=== PATIENT | female | born 1940 | race Caucasian/White ===

== ENCOUNTER → 2016-08-11 | Outpatient (CLI) | payer BC | END | disposition home or self-care (01) | LOC: C.PAPS 12:02 | PROVIDERS: ATTEND Obstetrics & Gynecology | DX: N81.11 Cystocele, midline (principal); Z01.419 Encounter for gynecological examination (general) (routine) without abnormal findings ==

== ENCOUNTER → 2016-09-23 | Outpatient (CLI) | payer BC ==
[~2016-09-23] MED LIST: ASCO500T3 PO; ASPEC81 PO; CALC-20 PO; CHOL1000 PO; FURO-85 PO; GLUCTAB7 PO; LSN25 PO; MULT-1092 PO; OMEG10007 PO; PHYT100T PO; SPR25 PO; TPRSR25 PO
--- NOTE | 2016-09-24 12:47 | MAMMOGRAPHY REPORT ---
BILATERAL DIGITAL SCREENING MAMMOGRAM WITH CAD: 09/23/2016 CLINICAL HISTORY: Routine screening. Patient has no complaints. TECHNIQUE: Bilateral CC and MLO views were obtained. Current study was also evaluated with a Comput er Aided Detection (CAD) system. COMPARISON: Comparison is made to exams dated: 09/21/2015 mammogram, 08/23/2013 mammogram, 08/25/2014 m ammogram, 08/17/2012 mammogram, 02/24/2012 mammogram, and 08/15/2011 mammogram - [facility]. BREAST COMPOSITION: The tissue of both breasts is almost entirely fatty. FINDINGS: There are minimal vascular calcifications in the breasts. No suspicious mass, architectur al distortion or cluster of microcalcifications is seen. IMPRESSION: ACR BI-RADS CATEGORY 1: NEGATIVE There is no mammographic evidence of malignancy. A 1 year screening mammogram is recommended. The p atient will receive written notification of the results. Approximately 10% of breast cancers are not detected with mammography. A negative mammographic repor t should not delay biopsy if a clinically suggestive mass is present. Faviola Denton M.D. ay/:09/23/2016 16:27:04 Nurse Practitioner Manager: Shaista JOAQUIN(Larissa)(M), [facility] letter sent: Normal 1/2 BI-RADS Code: ACR BI-RADS Category 1: Negative
== END | disposition home or self-care (01) ==
LOC: C.MAMM 10:29
PROVIDERS: ATTEND Obstetrics & Gynecology
DX: Z12.31 Encounter for screening mammogram for malignant neoplasm of breast (principal)

== ENCOUNTER → 2016-12-11 | Outpatient (CLI) | payer BC | END | disposition home or self-care (01) | LOC: C.LAB 18:18 | PROVIDERS: ATTEND Nurse Practitioner Family | DX: R39.9 Unspecified symptoms and signs involving the genitourinary system (principal); N39.0 Urinary tract infection, site not specified ==

== ENCOUNTER → 2016-12-26 | Outpatient (CLI) | payer BC ==
[2016-12-26 14:47] LABS: HEMATOCRIT 41.3 % (37-47); MEAN CORPUSCULAR HEMOGLOBIN 30.2 pg (25-34); MEAN CORPUSCULAR HGB CONC 32.4 g/dl (32-36); MEAN PLATELET VOLUME 10.8 fL (7.4-10.4); PLATELET COUNT 236 K/uL (130-400); RED BLOOD COUNT 4.44 M/uL (4.2-5.4); WHITE BLOOD COUNT 7.09 K/uL (4.8-10.8)
[2016-12-26 15:16] LABS: ALT/SGPT 27 U/L (12-78); BLOOD UREA NITROGEN 17 mg/dl (7-18); BUN/CREATININE RATIO 17.8 (10-20); CALCIUM 9.1 mg/dl (8.5-10.1); CARBON DIOXIDE 29 mmol/L (21-32); CHLORIDE 108 mmol/L (98-107); CHOLESTEROL 160 mg/dl (0-200); CREATININE 0.95 mg/dl (0.60-1.20); GLUCOSE 83 mg/dl (70-99); POTASSIUM 4.1 mmol/L (3.5-5.1); SODIUM 141 mmol/L (136-145); TRIGLYCERIDES 86 mg/dl (0-150); VERY LOW DENSITY LIPOPROT CALC 17 mg/dl
[2016-12-26 15:18] LABS: ALB/GLOB RATIO 1.1 (0.9-2); ALKALINE PHOSPHATASE 83 U/L (45-117); AST/SGOT 28 U/L (15-37); CHOLESTEROL/HDL RATIO 2.7; HDL CHOLESTEROL 60 mg/dl; LDL CHOLESTEROL CALCULATED 83 mg/dl
== END | disposition home or self-care (01) ==
LOC: C.CPL 13:55
PROVIDERS: ATTEND Internal Medicine Cardiovascular Disease
DX: I49.3 Ventricular premature depolarization (principal); E78.5 Hyperlipidemia, unspecified

== ENCOUNTER → 2017-03-10 | Outpatient (CLI) | payer BC | END | disposition home or self-care (01) | LOC: C.MAMM 09:57 | PROVIDERS: ATTEND Family Medicine | DX: M85.88 Other specified disorders of bone density and structure, other site (principal); M85.852 Other specified disorders of bone density and structure, left thigh; M85.851 Other specified disorders of bone density and structure, right thigh; Z78.0 Asymptomatic menopausal state ==

== ENCOUNTER → 2017-05-04 | Outpatient (CLI) | payer BC ==
[~2017-05-04] MED LIST changes: -PHYT100T PO
[2017-05-04 13:23] LABS: URINE APPEARANCE CLOUDY (CLEAR); URINE BILIRUBIN NEG (NEG); URINE COLOR YELLOW; URINE EPITHELIAL CELL AUTO 0-5 /lpf (0-5); URINE NITRITE NEG (NEG); URINE SPECIFIC GRAVITY 1.014 (1.000-1.030); UROBILINOGEN NEG (NEG)
[2017-05-04 13:25] LABS: MANUAL MICROSCOPIC REQUIRED? NO; REVIEW REQ? YES
[2017-05-04 14:07] LABS: BLOOD UREA NITROGEN 18 mg/dl (7-18); BUN/CREATININE RATIO 18.8 (10-20); CALCIUM 9.4 mg/dl (8.5-10.1); CARBON DIOXIDE 28 mmol/L (21-32); CHLORIDE 103 mmol/L (98-107); CREATININE 0.98 mg/dl (0.60-1.20); GLUCOSE 85 mg/dl (70-99); POTASSIUM 4.3 mmol/L (3.5-5.1); SODIUM 140 mmol/L (136-145)
== END | disposition home or self-care (01) ==
LOC: C.LAB 11:46
PROVIDERS: ATTEND Nurse Practitioner Adult Health
DX: I50.9 Heart failure, unspecified (principal)

== ENCOUNTER → 2017-09-07 | Outpatient (CLI) | payer BC ==
[~2017-09-07] MED LIST changes: -FURO-85 PO
--- NOTE | 2017-09-09 17:35 | POLYSOMNOGRAPH REPORT ---
CLINICAL DATA: A 77-year-old female with a BMI of [address] Lee. She is sent for a CPAP titration study. She feels like she is getting too much air. She does have a history of CHF. SLEEP ARCHITECTURE: Total sleep period was 469 minutes. Total sleep time was 325 minutes divided between 291 minutes of non REM and 10 minutes of REM. REM latency was 68.5 minutes. Sleep efficiency was 67%. Sleep consisted of stage N1 12%, N2 63% N3 14%, and REM 10%. AROUSAL DATA: 122 arousals were noted. 40 were due to respiratory events. 26 were due to snoring. PERIODIC LIMB MOVEMENT DATA: 101 limb movements during sleep were noted for an index of 18.6 per hour with arousal index of 5.9 per hour. RESPIRATORY DATA: The AHI was 17.4. The RDI was 19.4. There were 3 central and 17 obstructive apneic episodes. The longest apneic episode was 39.7 seconds. There were 74 hypopneic episodes with a mean duration of 27.9 seconds. There were 11 RERAs. The longest RERA was 86 seconds. OXIMETRY DATA: Transient nocturnal hypoxemia was seen. Oxygen ashwin was 85% during REM. Mean saturation was 93%. Time below 88% was 3 minutes. EKG: PVC's were seen. Heart rates ranged from 47-93 bpm. BREAST WORKER'S COMMENTS AND TREATMENT SUMMARY: The patient slept in the right and supine position. CPAP 5 cm, C-Flex setting 1 was begun. The patient began having some central apneic episodes and 2 short episodes of Che[place] Enrique breathing. She was then switched over to BIPAP 12/8 and was eventually titrated up to BIPAP 15/10 with Bi-Flex setting 2. She started using a nasal mask but would open her mouth, so she was switched to a full facemask. She had difficulty finding a mask which felt comfortable on her face. She tried a Quattro Air full facemask, a small [employer] Simplus, and a Simplus Celia View. She did not like any of the full face masks and returned to nasal pillows for Respironics. However, her mouth would open when nasal pillows were used and awaken her frequently. At her final pressure setting of BiPAP 15/10, Bi-Flex setting 2 , the patient slept for 74.8 minutes with an AHI of 0. IMPRESSION: Obstructive sleep apnea/hypopnea with a very difficult titration study. The patient did have some evidence of central apnea and transient Beni-Enrique respirations. She was switched from CPAP to BIPAP and was titrated up to a final pressure setting of 15/10. At that setting, she had an apnea/hypopnea index of 0. However, she was having a difficult time with her interface and preferred nasal pillows even though her mouth opened when she was using nasal pillows. RECOMMENDATIONS: The patient should be seen back in followup to discuss changes in her PAP therapy. If she is insisting on using a nasal mask, then a chin strap may be needed. If she continues to have difficulty, a referral for ASV titration may be of benefit. Clinical correlation is needed. FEDE
== END | disposition home or self-care (01) ==
LOC: C.NEUR 21:00
PROVIDERS: ATTEND Internal Medicine
DX: G47.33 Obstructive sleep apnea (adult) (pediatric) (principal)

== ENCOUNTER → 2017-10-29 | Outpatient (CLI) | payer BC ==
[~2017-10-29] MED LIST changes: -ASPEC81 PO; +ASPI-320 PO
--- NOTE | 2017-10-29 15:32 | MAMMOGRAPHY REPORT ---
BILATERAL DIGITAL SCREENING MAMMOGRAM TOMOSYNTHESIS WITH CAD: 10/29/2017 CLINICAL HISTORY: Routine screening. Patient has no complaints. TECHNIQUE: Breast tomosynthesis in addition to standard 2D mammography was performed. Current study was also evaluated with a Computer Aided Detection (CAD) system. COMPARISON: Comparison is made to exams dated: 09/23/2016 mammogram, 09/21/2015 mammogram, 08/25/2014 ma mmogram, 08/23/2013 mammogram, 08/17/2012 mammogram, and 02/24/2012 mammogram - [facility]. BREAST COMPOSITION: The tissue of both breasts is almost entirely fatty. FINDINGS: No suspicious masses, calcifications, or areas of architectural distortion are noted in ei ther breast. There has been no significant interval change compared to prior exams. IMPRESSION: ACR BI-RADS CATEGORY 1: NEGATIVE There is no mammographic evidence of malignancy. A 1 year screening mammogram is recommended. The pa tient will receive written notification of the results. Approximately 10% of breast cancers are not detected with mammography. A negative mammographic report should not delay biopsy if a clinically suggestive mass is present. Sarita Alegre M.D. ah/:10/29/2017 12:19:19 Training Facilitator: Amelia JOAQUIN(Larissa)(John), [facility] letter sent: Normal 1/2 BI-RADS Code: ACR BI-RADS Category 1: Negative
== END | disposition home or self-care (01) ==
LOC: C.MAMM 10:51
PROVIDERS: ATTEND Obstetrics & Gynecology
DX: Z12.31 Encounter for screening mammogram for malignant neoplasm of breast (principal)

== ENCOUNTER → 2018-01-21 | Outpatient (CLI) | payer BC ==
[~2018-01-21] MED LIST changes: +SPIR25TA6 PO; -SPR25 PO
--- NOTE | 2018-01-21 17:10 | DIAGNOSTIC IMAGING REPORT ---
CHEST 2 VIEWS ROUTINE CLINICAL HISTORY: COUGH COMPARISON STUDY: 04/14/2017 FINDINGS: The bones soft tissues and hemidiaphragms are normal. The cardiomediastinal silhouette is normal. The lungs are clear. The pulmonary vasculature is normal. IMPRESSION: Negative chest. The above report was generated using voice recognition software. It may contain grammatical, syntax or spelling errors. Electronically signed by: Khurram Broussard M.D. 01/21/2018 5:09 PM Dictated Date/Time: 01/21/2018 5:04 PM
== END | disposition home or self-care (01) ==
LOC: C.LAB 16:43
PROVIDERS: ATTEND Family Medicine
DX: R05 Cough (principal)

== ENCOUNTER → 2018-01-22 | Outpatient (CLI) | payer BC ==
[2018-01-22 09:41] LABS: BASO % 0.7 %; BASO ABS # 0.04 K/uL (0-0.2); EOS % 4.1 %; EOS ABS # 0.23 K/uL (0-0.5); HEMATOCRIT 42.6 % (37-47); HEMOGLOBIN 14.1 g/dL (12.0-16.0); IG# 0.01 K/uL (0.00-0.02); LYMPH % 29.2 %; LYMPH ABS # 1.64 K/uL (1.2-3.4); MEAN CELL VOLUME 92.8 fL (80-100); MEAN CORPUSCULAR HEMOGLOBIN 30.7 pg (25-34); MEAN CORPUSCULAR HGB CONC 33.1 g/dl (32-36); MEAN PLATELET VOLUME 11.3 fL (7.4-10.4); MONO % 10.7 %; NEUT % 55.1 %; PLATELET COUNT 251 K/uL (130-400); RED CELL DISTRIBUTION WIDTH CV 13.5 % (11.5-14.5); RED CELL DISTRIBUTION WIDTH SD 45.8 fL (36.4-46.3); WHITE BLOOD COUNT 5.62 K/uL (4.8-10.8)
[2018-01-22 10:16] LABS: ALBUMIN 3.6 gm/dl (3.4-5.0); ALKALINE PHOSPHATASE 77 U/L (45-117); ALT/SGPT 27 U/L (12-78); AST/SGOT 26 U/L (15-37); BLOOD UREA NITROGEN 17 mg/dl (7-18); CALCIUM 9.4 mg/dl (8.5-10.1); CARBON DIOXIDE 29 mmol/L (21-32); CHOLESTEROL 161 mg/dl (0-200); CREATININE 0.86 mg/dl (0.60-1.20); GLUCOSE 94 mg/dl (70-99); LDL CHOLESTEROL CALCULATED 93 mg/dl; POTASSIUM 4.4 mmol/L (3.5-5.1); SODIUM 137 mmol/L (136-145); TOTAL PROTEIN 7.5 gm/dl (6.4-8.2); TRANSFERRIN 309 mg/dl (200-360)
[2018-01-22 10:29] LABS: HEMOGLOBIN A1C 6.1 % (4.5-5.6)
== END | disposition home or self-care (01) ==
LOC: C.LAB 08:28
PROVIDERS: ATTEND Family Medicine
DX: R73.09 Other abnormal glucose (principal); E55.9 Vitamin D deficiency, unspecified; D51.9 Vitamin B12 deficiency anemia, unspecified; E78.9 Disorder of lipoprotein metabolism, unspecified; R53.83 Other fatigue

== ENCOUNTER 2024-06-20 14:44 | Inpatient (IN) ==
--- NOTE | 2024-06-20 15:45 | XRay Report ---
XR forearm LT 2V CLINICAL HISTORY: Forearm trauma TECHNIQUE: 2 views of the left forearm were obtained. Comparison: None available at the time of this dictation. FINDINGS: There is no evidence of acute fracture or dislocation. Joint spaces are well-preserved. No soft tissu e abnormality is seen. IMPRESSION: No evidence of acute osseous injury. ACT 112: Negative or not required by law. Electronically signed by: Paulo Ibrahim M.D. 06/20/2024 3:44 PM
[2024-06-20 15:52] LABS: Hematocrit (blood only) 36.2 % (37.0-47.0); Hemoglobin 12.4 g/dl (12.0-16.0); Mean Corpuscular Hemoglobin 30.4 pg (25.0-34.0); Mean Corpuscular Hgb Conc 34.3 g/dL (32.0-36.0); Mean Corpuscular Volume 88.7 fL (80.0-100.0); Mean Platelet Volume 10.5 fL (9.4-12.4); Platelet Count 136 K/uL (130-400); RDW Coefficient of Variation 14.2 % (11.5-14.5); Red Blood Count 4.08 M/uL (4.20-5.40); White Blood Count 13.41 K/ul (4.8-10.8)
--- NOTE | 2024-06-20 15:57 | Emergency Department Note ---
Impression & Plan Urinary tract infection, Fall, SHELBY (acute kidney injury) ED Provider Note NAME: WILY ADHIKARI AGE: 83 SEX: F : 1940 ARRIVES VIA: Walk-In INFORMANT: Patient, the patient's daughter ED PROVIDER(S): Pan Ross DO CHIEF COMPLAINT: Fall HPI: The patient is an 83-year-old female who presented to the emergency department for an evaluation after a fall. The patient fell last evening onto her left side. She thinks she may have struck the left side of her head. There was no reported loss of consciousness but the patient's daughter was concerned because she seemed to be confused and slow this morning. She thinks her symptoms have improved. She also has complained of a sore throat as well as swelling under the left side of her neck. She denies having any fever. She denies having any vomiting or abdominal pain. She denies having any back pain. She does complain of some right hip pain but she has been able to ambulate. Her daughter did call her primary care physician and they were referred to the emergency department. ROS: See above HPI for pertinent positives & negatives. A total of 10 systems reviewed and were otherwise negative. PAST MEDICAL HISTORY: See Below PAST SURGICAL HISTORY: See Below FAMILY HISTORY: See Below SOCIAL HISTORY: See Below HOME MEDICATIONS: See Below ALLERGIES: See Below VITALS: See Below PHYSICAL EXAMINATION: GENERAL: Patient is awake alert in no acute distress patient is resting comfortably and showing no signs of anxiety EYES: The conjunctivae are clear. The pupils are round and reactive. EARS, NOSE, MOUTH AND THROAT: The nose is without any evidence of any deformity. Mucous membranes are moist. There is no significant erythema. There is no swelling in the oropharynx. NECK: The neck is nontender and supple. RESPIRATORY: Normal respiratory effort is noted there is no evidence of wheezing rhonchi or rales CARDIOVASCULAR: Regular rate and rhythm noted there no murmurs rubs or gallops normal S1 normal S2. GASTROINTESTINAL: The abdomen is soft. Abdomen is nontender. BACK: No midline tenderness or or step-off noted range of motion in flexion extension as well as rotation no signs of muscle spasm noted MUSCULOSKELETAL/EXTREMITIES: There is no evidence of gross deformity full range of motion is noted in the hips and shoulders. SKIN: There is no obvious evidence of any rash. There are no petechiae, pallor or cyanosis noted. NEUROLOGIC: Patient is awake alert and oriented x3. Strength was symmetric. MEDICAL DECISION MAKING: The patient is an 83-year-old female who presented to the emergency department for an evaluation after a fall. The patient did have a fall yesterday which seemed to be a minor fall but she seemed to be weak and a little bit off according to her daughter. The patient was awake and alert for my exam. She had no obvious signs of trauma. I discussed the patient's laboratory and radiographic studies with the patient's daughter as well as the patient. She was treated with IV fluids because her creatinine was slightly elevated and she had episodes of hypotension. She also was treated with an IV antibiotic. On reevaluation she started having rigors. Initially I thought the patient might be a good candidate for outpatient management but after reevaluation of the concern that she may be developing more of a pyelonephritis or systemic infection. For this reason I discussed her condition with the on-call [facility] hospitalist. Triage Nursing notes reviewed. Prior medical records reviewed Vital Signs: reviewed and remarkable for hypotension. Differential diagnosis: Fracture, dislocation, contusion, intra-abdominal, pneumothorax, intrathoracic, intracranial, neurologic, compartment syndrome, rhabdomyolysis, as well as other pathologies. ER treatment provided: See below Diagnostics interpreted by me: ECG: none Cardiac Monitoring: An order was placed for continuous cardiac monitoring. The monitor shows a rate of 77 bpm with sinus rhythm. Laboratory studies: As stated above and show below. Imaging studies: See below. Radiographic imaging was reviewed by myself Consultation(s): I discussed this case with Dr. Restrepo who is on-call for the [facility]ist group. Past Med/Surg History Problem List (Updated 06/20/24 @ 19:23 by Pan Ross DO) SHELBY (acute kidney injury) (Acute) Fall (Acute) Urinary tract infection (Acute) Right hip pain Incomplete bladder emptying Scoliosis of lumbar region due to degenerative disease of spine in adult Microscopic hematuria Low back pain Disc degeneration, lumbar Urinary urgency Urinary frequency UTI (urinary tract infection) Near syncope Chronic UTI Calcification of both carotid arteries Dysphagia CHF (congestive heart failure) Alveolar emphysema of lung Diarrhea Ventricular tachycardia, non-sustained Postmenopausal atrophic vaginitis Rosacea Psoriasis Postmenopausal hormone replacement therapy Osteopenia Chronic interstitial cystitis Cystocele Exertional shortness of breath Ex-smoker MARIAMA (obstructive sleep apnea) Knee pain Recurrent UTI Urinary incontinence Ventricular ectopy (Chronic) Medical History Acute UTI Seborrheic keratosis Rectocele Menopausal symptoms COPD with emphysema Abnormal chest CT Neurofibroma Migraine Surgical History S/P tonsillectomy and adenoidectomy S/P foot surgery S/P appendectomy History of dilation and curettage H/O sinus surgery History of cataract surgery Family History Grandmother (Maternal) Colorectal cancer Family/Other Ovarian cancer first cousin Aunt Myocardial infarction Uncle Stroke Other Breast cancer Denies family history of Prostate cancer Lung cancer Social History Smoking Status: Never smoker Tobacco Type: Cigarettes Age Started Using Tobacco: 16; Age Quit Using Tobacco: 45; packs per day: 2; Second Hand Exposure: No; Do You Dip or Chew Tobacco: No; Hx Alcohol Use: No Hx Substance Use: No Preferred Language: Icelandic Communication Ability: Effective Visual Impairment: Limited Hearing Ability: Normal marital status: Current Living Situation: Spouse current occupational status: employed 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 How many Children do You have: 3 Feels Safe at Home: Yes Childhood Exposure to Second-Hand Smoke: Yes Diet: regular caffeine: No during the past year weight has: remained stable Dental Care, Regularly: Yes Physical Activity Frequency: 3-4 Times per Week Seatbelt Use: always Sunscreen Use: Yes Assistive Devices: None Allergies Allergies Allergy/AdvReac Type Severity Reaction Status Date / Time prednisone Allergy Intermediate Joint pain Verified 05/09/24 13:22 Sulfa (Sulfonamide Allergy Intermediate Nausea Verified 05/09/24 13:22 Antibiotics) codeine Allergy Mild Itchy, red Verified 05/09/24 13:22 skin latex Allergy Mild Itchy, red Verified 05/09/24 13:22 skin Home Meds Home Medications Medication Instructions Recorded Confirmed digestive enzymes 1 tab PO DAILY 01/27/19 06/20/24 multivitamin-ferrous 1 tab PO DAILY 01/27/19 06/20/24 fumarate-folic acid 18 mg-400 mcg tablet (Centrum Complete) spironolactone 25 mg tablet 12.5 mg PO DAILY 01/22/21 06/20/24 telmisartan 20 mg tablet 20 mg PO DAILY 01/22/21 06/20/24 glucosamine sulfate 500 mg tablet 500 mg PO DAILY 11/26/21 06/20/24 (Glucosamine) ascorbic acid (vitamin C) 500 mg 500 mg PO DAILY 10/02/22 06/20/24 tablet fluticasone propionate 50 2 spray intranasal DAILY PRN 10/02/22 06/20/24 mcg/actuation nasal allergies spray,suspension furosemide 20 mg tablet 20 mg PO .twice weekly and PRN PRN 10/02/22 06/20/24 Fluid Retention aspirin 81 mg tablet 81 mg PO DAILY 11/28/22 06/20/24 calcium carbonate-vitamin D3 1 tab PO DAILY 11/28/22 06/20/24 [Calcium 600 with Vitamin D3] cholecalciferol (vitamin D3) 10 400 unit PO DAILY 11/28/22 06/20/24 mcg (400 unit) tablet coenzyme Q10 100 mg capsule 100 mg PO DAILY 11/28/22 06/20/24 omega-3 fatty acids [Fish Oil 1 tab PO DAILY 11/28/22 06/20/24 Concentrate] turmeric 400 mg capsule 400 mg PO DAILY 11/28/22 06/20/24 celecoxib 200 mg capsule (Celebrex) 200 mg PO BID PRN pain 06/26/23 06/20/24 metoprolol succinate 25 mg 25 mg PO UD 06/26/23 06/20/24 tablet,extended release 24 hr d-mannose [AZO D-Mannose] 2 cap PO DAILY 10/14/23 06/20/24 conjugated estrogens 0.625 mg/gram 0.3125 mg vaginal .2 times a week 05/09/24 06/20/24 vaginal cream mometasone 0.1 % topical cream 1 applic topical BID y 06/20/24 06/20/24 Previous Rx's Medication Instructions Recorded Flutter Valve #1 ea 10/13/22 albuterol sulfate 0.63 mg/3 mL 0.63 mg (3 mL) inhalation BID PRN 10/15/23 solution for nebulization shortness of breath or wheezing #540 mL albuterol sulfate 90 mcg/actuation 2 puff inhalation Q6H PRN 10/15/23 aerosol inhaler Shortness Of Breath Or Wheezing #18 grams sodium chloride 7 % for 1 inh inhalation BID #240 mL 10/15/23 nebulization tiotropium bromide 2.5 2 puff inhalation DAILY #4 grams 10/15/23 mcg/actuation mist for inhalation (Spiriva Respimat) nebulizer accessories #1 ea 05/23/24 nebulizers (Aeroneb Go Nebulizer) #1 ea 05/23/24 TENS unit and electrodes combo pack #1 ea 06/17/24 Results & Data (ED) Vital Signs Vital Signs - 24 hr 06/20/24 14:47 06/20/24 15:24 06/20/24 17:00 Temperature 36.4 C L Temperature Source Temporal Artery Scan Pulse Rate 97 H Pulse Rate [Finger] 86 77 Pulse Strength [Finger] Normal Normal Respiratory Rate 16 16 16 Respiratory Effort / Characteristics Non-Labored Spontaneous Non-Labored Spontaneous Non-Labored Spontaneous Respiratory Depth Normal Normal Normal Respiratory Pattern Regular Regular Blood Pressure 100/55 L Blood Pressure [Right Arm] 81/48 L 98/48 L Blood Pressure Mean 70 Blood Pressure Mean [Right Arm] 59 64 Blood Pressure Position Sitting Blood Pressure Position [Right Arm] Sitting Sitting Pulse Oximetry 96 95 96 Oxygen Delivery Method Room Air Room Air Room Air Sepsis Recent Fever Within 48 Hours No Sepsis New/Unexplained Change in Mental Status N/A Sepsis Action Taken by Nursing No Action Required Home Medications Current Medication List: was personally reviewed by me Laboratory Data Attestation: I reviewed the patient's lab results. 06/20/24 15:01 06/20/24 15:01 Lab Results 06/20/24 06/20/24 06/20/24 Range/Units 15:01 15:56 17:30 WBC 13.41 H (4.8-10.8) K/ul RBC 4.08 L (4.20-5.40) M/uL Hgb 12.4 (12.0-16.0) g/dl Hct 36.2 L (37.0-47.0) % MCV 88.7 (80.0-100.0) fL MCH 30.4 (25.0-34.0) pg MCHC 34.3 (32.0-36.0) g/dL RDW Std Deviation 46.0 (36.4-46.3) fL RDW Coeff of Rosalba 14.2 (11.5-14.5) % Plt Count 136 (130-400) K/uL MPV 10.5 (9.4-12.4) fL Immature Gran % (Auto) 0.7 % Neut % (Auto) 93.7 % Lymph % (Auto) 1.6 % Kerr % (Auto) 2.6 % Eos % (Auto) 1.1 % Baso % (Auto) 0.3 % Neut # (Auto) 12.56 H (1.40-6.50) K/uL Lymph # (Auto) 0.21 L (1.20-3.40) K/uL Kerr # (Auto) 0.35 (0.11-0.59) K/uL Eos # (Auto) 0.15 (0.00-0.50) K/uL Baso # (Auto) 0.04 (0.00-0.20) K/uL Immature Gran # (Auto) 0.10 (0.01-0.20) K/uL Toxic Vacuolation 1+ Dohle Bodies 1+ Sodium 132 L (136-145) mmol/L Potassium 3.9 (3.5-5.1) mmol/L Chloride 100 (98-107) mmol/L Carbon Dioxide 20 L (21-32) mmol/L Anion Gap 12 H (3-11) BUN 20 (6-23) mg/dl Creatinine 1.23 H (0.6-1.2) mg/dl Est Cr Clr Drug Dosing 34.6 ml/min eGFR 43.60 BUN/Creatinine Ratio 16.3 (10-20) Glucose 165 H (70-99(Fasting)) mg/dl Calcium 8.8 (8.6-10.3) mg/dl Total Bilirubin 0.7 (0.2-1.0) mg/dl AST 33 (13-39) U/L ALT 19 (7-52) U/L Alkaline Phosphatase 96 (34-104) U/L Total Protein 7.1 (6.0-8.3) gm/dl Albumin 3.8 (3.4-5.0) gm/dl Globulin 3.3 (2.5-4.0) gm/dl Albumin/Globulin Ratio 1.2 (0.9-2) Urine Color Yellow Urine Appearance Cloudy A (Clear) Urine pH 5.5 (4.5-7.5) Ur Specific [place] 1.019 (1.000-1.030) Urine Protein 2+ H (Negative) Urine Glucose (UA) Negative (Negative) Urine Ketones Trace H (Negative) Urine Blood 2+ H (Negative) Urine Nitrite Positive A (Negative) Urine Bilirubin Negative (Negative) Urine Urobilinogen Negative (Negative) Ur Leukocyte Esterase 2+ H (Negative) Urine WBC (Auto) 21-50 H (0-5) /hpf Urine RBC (Auto) 0-2 (0-2) /hpf U Hyaline Cast (Auto) 11-20 H (0-2) /lpf U Epithel Cells (Auto) >20 H (0-2) /hpf Urine Bacteria (Auto) 2+ H (None Seen) SARS-CoV-2 (PCR) NEGATIVE (Negative) Influenza Type A (PCR) Negative (Neg) Influenza Type B (PCR) Negative (Neg) RSV (RT-PCR) Negative (Neg) Administered Medications Discontinued Medications Sodium Chloride (Nss) 500 mls @ 999 mls/hr IV .Q31M ONE Stop: 06/20/24 16:25 Last Infusion: 06/20/24 17:10 Dose: Infused Documented By: Admin: 06/20/24 16:25 Dose: 999 mls/hr Documented By: Infusion: 06/20/24 16:25 Dose: Infused Documented By: Admin: 06/20/24 15:59 Dose: 999 mls/hr Documented By: MALINA Sodium Chloride (Nss) 500 mls @ 999 mls/hr IV .Q31M ONE Stop: 06/20/24 16:37 Last Infusion: 06/20/24 17:10 Dose: Infused Documented By: Admin: 06/20/24 16:30 Dose: 999 mls/hr Documented By: MALINA Sodium Chloride (Nss) 500 mls @ 999 mls/hr IV .Q31M ONE Stop: 06/20/24 19:07 Last Admin: 06/20/24 18:49 Dose: 999 mls/hr Documented By: MARIUSZ Imaging Data Attestation: I personally reviewed and interpreted this imaging study as follows: My Impression: X-ray of the chest was obtained in the emergency department. My interpretation is no free air or definite infiltrate, final report below. CT of the brain was obtained in the emergency department. My interpretation is no intracranial hemorrhage or mass effect, final report below. Radiologist's Impression: Forearm X-Ray 06/20/24 14:54 XR forearm LT 2V CLINICAL HISTORY: Forearm trauma TECHNIQUE: 2 views of the left forearm were obtained. Comparison: None available at the time of this dictation. FINDINGS: There is no evidence of acute fracture or dislocation. Joint spaces are well- preserved. No soft tissue abnormality is seen. IMPRESSION: No evidence of acute osseous injury. ACT 112: Negative or not required by law. Electronically signed by: Paulo Ibrahim M.D. 06/20/2024 3:[address] 06/20/24 15:46 Clinical history: Trauma Technique: Axial computed tomography images were obtained of the cervical spine without intravenous contrast. Sagittal and coronal reconstructions were obtained Findings: No fracture is identified. No listhesis is seen. No focal osseous lesion is evident. There is atlantoaxial osteoarthritis At C2-3, there is a disc bulge without spinal stenosis. There is left neural foramen narrowing affect the left C3 nerve root At C3-4, there is spinal stenosis due to a disc bulge and a central to left paracentral disc protrusion. There is left greater than right neural foramen narrowing that may affect the C4 nerve root At C4-5, there is spinal stenosis due to a disc bulge and a central disc protrusion. There is bilateral neural foramen narrowing that may affect the exiting C5 nerve roots At C5-6, there is mild spinal stenosis due to a disc bulge and a left paracentral disc protrusion. There is left greater than right neural foramen narrowing that may affect the left C6 nerve root At C6-7, there is a disc bulge without spinal stenosis. The neural foramen are patent At C7-T1, there is a mild disc bulge. There is no spinal stenosis. The neural foramen are patent There are irregular opacities in the lung apices, likely due to pleural-parenchymal scarring. There is a small nodule or cyst in the right thyroid lobe. No foreign body is seen Impression: 1. No definite cervical spine fracture 2. Spinal stenosis from C3-4 through C5-6 3. Left C2-3 and C3-4, bilateral C4-5, and left C5-6 neural foramen narrowing. This may affect the exiting nerve roots 4. Small thyroid lesion, likely benign. A follow-up thyroid ultrasound could be obtained Electronically signed by Curtis Dennis 06-20-2024 4:[address] 06/20/24 15:46 Clinical History: Fall Technique: Axial computed tomography images were obtained of the brain without intravenous contrast. Findings: There is diffuse cerebral atrophy, within expected limits for the patient's age. Areas of decreased attenuation are seen within the periventricular white matter, likely representing chronic small vessel ischemic disease. There is no definite sign of acute or old infarction. No intracranial hemorrhage is evident. No definite mass lesion is seen on this noncontrast examination. There is no midline shift or other form of herniation. No hydrocephalus is seen. No fracture is identified. The orbits and the visualized paranasal sinuses appear unremarkable. The mastoid air cells appear clear. Impression: 1. Cerebral atrophy and chronic small vessel ischemic disease 2. Otherwise unremarkable noncontrast CT of the brain Electronically signed by Curtis Dennis 06-20-2024 4:39 PM Chest X-Ray 06/20/24 15:47 INDICATION: Chest pain. TECHNIQUE: Frontal radiograph of the chest. COMPARISON: Radiograph from 08/29/2021. FINDINGS: Mild cardiomegaly. Chronic appearing interstitial lung markings. Chronic blunting of the left costophrenic angle. Linear scarring/atelectasis in the left lower lobe. Mild pulmonary vascular congestion. No infiltrate, pleural effusion or pneumothorax. No acute osseous abnormality evident. IMPRESSION: Mild pulmonary vascular congestion. Electronically signed by Reggie Jackson 06-20-2024 4:14 PM Pelvis X-Ray 06/20/24 15:47 INDICATION: Pain and injury. TECHNIQUE: One view of the pelvis. COMPARISON: No relevant priors. FINDINGS: No acute fracture or dislocation. No lytic or blastic bony lesions seen. Mild bilateral hip joint space loss. Soft tissues appear unremarkable. IMPRESSION: No acute osseous abnormality evident. Electronically signed by Reggie Jackson 06-20-2024 4:14 PM Discharge Plan Visit Data Chief Complaint: Fall Stated Complaint: FALL LAST NIGHT, SORE, ALSO HAS SWOLLEN GLANDS ED Provider: Pan Ross Discharge Problem: Urinary tract infection, Fall, SHELBY (acute kidney injury) Patient Disposition: Being Evaluated by Hospitalist Forms Stand Alone Forms: [facility] [employer] Prescriptions Prescriptions: No Action (DME) nebulizers [Aeroneb Go Nebulizer] Misc See Rx Instructions .MEDSUPPLY Qty: 1 0RF Rx Instructions: With tubing and supplies. J44.9. J45.9. ([facility]) nebulizer accessories Kit See Rx Instructions .Route Qty: 1 0RF Rx Instructions: As directed ([facility]) TENS unit and electrodes Combo Pack See Rx Instructions .ROUTE .MEDSUPPLY Qty: 1 0RF Rx Instructions: As directed telmisartan 20 mg tablet 20 mg PO DAILY Rx Instructions: 20 mg po daily. Per pt she does half daily (10 mg) spironolactone 25 mg tablet 12.5 mg PO DAILY metoprolol succinate 25 mg tablet extended release 24 hr 25 mg PO UD Rx Instructions: takes 1.5 tabs in the AM, and 1 tab at night celecoxib [Celebrex] 200 mg capsule 200 mg PO BID PRN (Reason: pain) (DME) Flutter Valve Device See Rx Instructions .MEDSUPPLY Qty: 1 0RF Rx Instructions: Use it every 6 hours when awake. d-mannose [AZO D-Mannose] 2 cap PO DAILY Spiriva Respimat 2.5 mcg/actuation mist 2 puff inhalation DAILY Qty: 4 12RF albuterol sulfate 0.63 mg/3 mL solution for nebulization 0.63 mg inhalation BID PRN (Reason: shortness of breath or wheezing) Qty: 540 3RF albuterol sulfate 90 mcg/actuation HFA aerosol inhaler 2 puff inhalation Q6H PRN (Reason: Shortness Of Breath Or Wheezing) Qty: 18 3RF sodium chloride 7 % solution for nebulization 1 inh inhalation BID Qty: 240 8RF Centrum Complete 18-400 mg-mcg tablet 1 tab PO DAILY digestive enzymes tablet 1 tab PO DAILY glucosamine sulfate [Glucosamine] 500 mg tablet 500 mg PO DAILY ascorbic acid (vitamin C) 500 mg tablet 500 mg PO DAILY fluticasone propionate 50 mcg/actuation spray,suspension 2 spray intranasal DAILY PRN (Reason: allergies) furosemide 20 mg tablet 20 mg PO .twice weekly and PRN PRN (Reason: Fluid Retention) aspirin 81 mg tablet 81 mg PO DAILY calcium carbonate-vitamin D3 1 tab PO DAILY cholecalciferol (vitamin D3) 10 mcg (400 unit) tablet 400 unit PO DAILY coenzyme Q10 100 mg capsule 100 mg PO DAILY omega-3 fatty acids 1 tab PO DAILY turmeric 400 mg capsule 400 mg PO DAILY conjugated estrogens 0.625 mg/gram cream 0.3125 mg PV .2 times a week Rx Instructions: Insert 1/4 applicatorful twice weekly. mometasone 0.1 % cream 1 applic topical BID Rx Instructions: Apply to areas of the arms and legs twice daily x 2 weeks as directed for flaring. Referrals Referrals: Amarjit Becker MD [Primary Care Provider] - Discharge Problem: Urinary tract infection Qualifiers: Urinary tract infection type: site unspecified Hematuria presence: without hematuria Qualified Code(s): N39.0 - Urinary tract infection, site not specified Fall Qualifiers: Encounter type: initial encounter Qualified Code(s): W19.XXXA - Unspecified fall, initial encounter
[2024-06-20] MEDS: SODIUM CHLORIDE 0.9% 500 ML IV ONE ×3 (15:59→18:49)
[2024-06-20 16:07] LABS: Albumin Globulin Ratio 1.2 (0.9-2); Albumin Level 3.8 gm/dl (3.4-5.0); BUN Creatinine Ratio 16.3 (10-20); Bilirubin,Total 0.7 mg/dl (0.2-1.0); Calcium 8.8 mg/dl (8.6-10.3); Creatinine Clr Calc Pharmacy 34.6 ml/min; Globulin 3.3 gm/dl (2.5-4.0); Potassium 3.9 mmol/L (3.5-5.1); Total Protein 7.1 gm/dl (6.0-8.3)
[2024-06-20 16:14] LABS: Basophils # (auto) 0.04 K/uL (0.00-0.20); Basophils % (auto) 0.3 %; Dohle Bodies 1+; Eosinophils # (auto) 0.15 K/uL (0.00-0.50); Eosinophils % (auto) 1.1 %; Immature Granulocytes % (auto) 0.7 %; Lymphocytes # (auto) 0.21 K/uL (1.20-3.40); Lymphocytes % (auto) 1.6 %; Monocytes # (auto) 0.35 K/uL (0.11-0.59); Monocytes % (auto) 2.6 %; Neutrophils # (auto) 12.56 K/uL (1.40-6.50); Neutrophils % (auto) 93.7 %; Toxic Vacuolation 1+
--- NOTE | 2024-06-20 16:14 | XRay Report ---
INDICATION: Chest pain. TECHNIQUE: Frontal radiograph of the chest. COMPARISON: Radiograph from 08/29/2021. FINDINGS: Mild cardiomegaly. Chronic appearing interstitial lung markings. Chronic blunting of the left costophrenic angle. Linear scarring/atelectasis in the left lower lobe. Mild pulmonary vascular congestion. No infiltrate, pleural effusion or pneumothorax. No acute osseous abnormality evident. IMPRESSION: Mild pulmonary vascular congestion. Electronically signed by Reggie Jackson 06-20-2024 4:14 PM
--- NOTE | 2024-06-20 16:17 | XRay Report ---
INDICATION: Pain and injury. TECHNIQUE: One view of the pelvis. COMPARISON: No relevant priors. FINDINGS: No acute fracture or dislocation. No lytic or blastic bony lesions seen. Mild bilateral hip joint space loss. Soft tissues appear unremarkable. IMPRESSION: No acute osseous abnormality evident. Electronically signed by Reggie Jackson 06-20-2024 4:14 PM
--- NOTE | 2024-06-20 16:40 | CT Scan Report ---
Clinical History: Fall Technique: Axial computed tomography images were obtained of the brain without intravenous contrast. Findings: There is diffuse cerebral atrophy, within expected limits for the patient's age. Areas of decreased attenuation are seen within the periventricular white matter, likely representing chronic small vessel ischemic disease. There is no definite sign of acute or old infarction. No intracranial hemorrhage is evident. No definite mass lesion is seen on this noncontrast examination. There is no midline shift or other form of herniation. No hydrocephalus is seen. No fracture is identified. The orbits and the visualized paranasal sinuses appear unremarkable. The mastoid air cells appear clear. Impression: 1. Cerebral atrophy and chronic small vessel ischemic disease 2. Otherwise unremarkable noncontrast CT of the brain Electronically signed by Curtis Dennis 06-20-2024 4:39 PM
--- NOTE | 2024-06-20 16:52 | CT Scan Report ---
Clinical history: Trauma Technique: Axial computed tomography images were obtained of the cervical spine without intravenous contrast. Sagittal and coronal reconstructions were obtained Findings: No fracture is identified. No listhesis is seen. No focal osseous lesion is evident. There is atlantoaxial osteoarthritis At C2-3, there is a disc bulge without spinal stenosis. There is left neural foramen narrowing affect the left C3 nerve root At C3-4, there is spinal stenosis due to a disc bulge and a central to left paracentral disc protrusion. There is left greater than right neural foramen narrowing that may affect the C4 nerve root At C4-5, there is spinal stenosis due to a disc bulge and a central disc protrusion. There is bilateral neural foramen narrowing that may affect the exiting C5 nerve roots At C5-6, there is mild spinal stenosis due to a disc bulge and a left paracentral disc protrusion. There is left greater than right neural foramen narrowing that may affect the left C6 nerve root At C6-7, there is a disc bulge without spinal stenosis. The neural foramen are patent At C7-T1, there is a mild disc bulge. There is no spinal stenosis. The neural foramen are patent There are irregular opacities in the lung apices, likely due to pleural-parenchymal scarring. There is a small nodule or cyst in the right thyroid lobe. No foreign body is seen Impression: 1. No definite cervical spine fracture 2. Spinal stenosis from C3-4 through C5-6 3. Left C2-3 and C3-4, bilateral C4-5, and left C5-6 neural foramen narrowing. This may affect the exiting nerve roots 4. Small thyroid lesion, likely benign. A follow-up thyroid ultrasound could be obtained Electronically signed by Curtis Dennis 06-20-2024 4:52 PM
[2024-06-20 16:53] LABS: Influenza A virus by PCR Negative (Neg); Influenza B virus by PCR Negative (Neg); RSV by PCR Negative (Neg); SARS CoV2 RNA(COVID-19) Ceph NEGATIVE (Negative)
[2024-06-20 18:00] LABS: Appearance Urine Cloudy (Clear); Bacteria Urine Automated 2+ (None Seen); Bilirubin Urine Negative (Negative); Blood Urine 2+ (Negative); Color Urine Yellow; Epithelial Cell Urine Auto >20 /hpf (0-2); Glucose Urine UA Negative (Negative); Ketones Urine Trace (Negative); Leukocyte Esterase Urine 2+ (Negative); Nitrite Urine Positive (Negative); Protein Urine 2+ (Negative); RBC Urine Automated 0-2 /hpf (0-2); Specific Gravity Urine 1.019 (1.000-1.030); Urobilinogen Urine Negative (Negative); WBC Urine Automated 21-50 /hpf (0-5); pH Urine 5.5 (4.5-7.5)
--- NOTE | 2024-06-20 19:27 | History & Physical Report ---
Date of Service June 20, 2024 Assessment & Plan (1) Urinary tract infection: (2) SHELBY (acute kidney injury): Plan 83-year-old female PMHx COPD with emphysema, neurofibroma, and migraines presenting to ED following fall from standing at home, all imaging w/o traumatic findings. 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 Upon admitting evaluation, patient was stable and conversing with provider. DO and PA then notified of the abrupt change in patient, becoming more feverish and rigorous w/ change in mental status, requiring supplemental O2. Had resolved w/ interventions. Received 1.5L NSS and Ceftriaxone in ED. Admission for treatment of UTI and SHELBY. #UTI Asymptomatic per patient, but with recent falls and associated SHELBY; Fevers + rigors upon evaluation. - UA show cloudy urine, 2+ protein, trace ketones, 2+ blood, positive nitrate, presence of LE, WBC, hyaline cast, epithelial cells, and bacteria; pending culture - CTAP pending - Ceftriaxone 2g IV daily + Acetaminophen scheduled #SHELBY Likely secondary to UTI; H/o incomplete bladder emptying. - Cr 1.23, BUN 20; UA with signs of infection - Received 1.5L NSS in ED; No further IVF at this time given ? pulmonary vascular congestion on CXR - Hold Lasix + spironolactone; Avoid nephrotoxins - H/o incomplete emptying- Bladder scan w/ PVR x 1 then prn - BMP am #COPD H/o COPD w/ emphysema - No O2 at baseline; BiPAP nightly - CXR w/ mild pulmonary vascular congestion - Continue scheduled nebs q4hr alternating - ipratropium + levalbuterol PT/OT placed Initially hypotensive- Hold Telmisartan Dispo: PCU VTE Prophylaxis: Heparin This document was dictated utilizing [employer]. Please excuse any grammatical errors that may be secondary to use of this software. Admission and Anticipated Discharge Date Admission Date: 06/20/2024 History of Present Illness Chief Complaint: Fall Primary Care Provider: Amarjit Becker MD 83-year-old female PMHx COPD with emphysema, neurofibroma, and migraines presenting to ED following fall at home. 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 Does not believe that she struck her head, but thinks she hit her right hip. States that she was on the ground for maybe a few minutes, but that her daughter was able to help her get back up. She had no symptoms prior to the fall to include dizziness, chest pain, or shortness of breath. Prior to this, the patient states that she has been sick for approximately 3 days, stating that the lymph nodes in her neck were swollen and she was having a sore throat. This has improved slightly. C urnisreent complaint is that she is feeling very cold and shaking. Denying additional symptoms to include chest pain, shortness of breath, palpitations, abdominal pain, N/V/D/C, dysuria, headache, dizziness, or weakness. UA on arrival revealing evidence of infection with leukocytosis. Imaging reveals no traumatic findings. Her daughter is present in the room at time of visit and helps provide history. Patient's daughter states that she is noted that the day of arrival the patient became slower to answer questions and appeared to be weaker. Patient did not take morning medications. Please see Dr. Restrepo's attestation for adjustments/additions to treatment plan. Allergies Allergy/AdvReac Type Severity Reaction Status Date / Time prednisone Allergy Intermediate Joint pain Verified 05/09/24 13:22 Sulfa (Sulfonamide Allergy Intermediate Nausea Verified 05/09/24 13:22 Antibiotics) codeine Allergy Mild Itchy, red Verified 05/09/24 13:22 skin latex Allergy Mild Itchy, red Verified 05/09/24 13:22 skin Home Medications Medication Instructions Recorded Confirmed Type digestive enzymes 1 tab PO DAILY 01/27/19 06/20/24 History multivitamin-ferrous 1 tab PO DAILY 01/27/19 06/20/24 History fumarate-folic acid 18 mg-400 mcg tablet (Centrum Complete) spironolactone 25 mg tablet 12.5 mg PO DAILY 01/22/21 06/20/24 History telmisartan 20 mg tablet 20 mg PO DAILY 01/22/21 06/20/24 History glucosamine sulfate 500 mg tablet 500 mg PO DAILY 11/26/21 06/20/24 History (Glucosamine) ascorbic acid (vitamin C) 500 mg 500 mg PO DAILY 10/02/22 06/20/24 History tablet fluticasone propionate 50 2 spray intranasal DAILY PRN 10/02/22 06/20/24 History mcg/actuation nasal allergies spray,suspension furosemide 20 mg tablet 20 mg PO .twice weekly and PRN PRN 10/02/22 06/20/24 Hi story Fluid Retention Flutter Valve #1 ea 10/13/22 05/09/24 Rx aspirin 81 mg tablet 81 mg PO DAILY 11/28/22 06/20/24 History calcium carbonate-vitamin D3 1 tab PO DAILY 11/28/22 06/20/24 History [Calcium 600 with Vitamin D3] cholecalciferol (vitamin D3) 10 400 unit PO DAILY 11/28/22 06/20/24 History mcg (400 unit) tablet coenzyme Q10 100 mg capsule 100 mg PO DAILY 11/28/22 06/20/24 History omega-3 fatty acids [Fish Oil 1 tab PO DAILY 11/28/22 06/20/24 History Concentrate] turmeric 400 mg capsule 400 mg PO DAILY 11/28/22 06/20/24 History celecoxib 200 mg capsule (Celebrex) 200 mg PO BID PRN pain 06/26/23 06/20/24 History metoprolol succinate 25 mg 25 mg PO UD 06/26/23 06/20/24 History tablet,extended release 24 hr d-mannose [AZO D-Mannose] 2 cap PO DAILY 10/14/23 06/20/24 History albuterol sulfate 0.63 mg/3 mL 0.63 mg (3 mL) inhalation BID PRN 10/15/23 06/20/24 Rx solution for nebulization shortness of breath or wheezing #540 mL albuterol sulfate 90 mcg/actuation 2 puff inhalation Q6H PRN 10/15/23 06/20/24 Rx aerosol inhaler Shortness Of Breath Or Wheezing #18 grams sodium chloride 7 % for 1 inh inhalation BID #240 mL 10/15/23 06/20/24 Rx nebulization tiotropium bromide 2.5 2 puff inhalation DAILY #4 grams 10/15/23 06/20/24 Rx mcg/actuation mist for inhalation (Spiriva Respimat) conjugated estrogens 0.625 mg/gram 0.3125 mg vaginal .2 times a week 05/09/24 06/20/24 History vaginal cream nebulizer accessories #1 ea 05/23/24 Rx nebulizers (Aeroneb Go Nebulizer) #1 ea 05/23/24 Rx TENS unit and electrodes combo pack #1 ea 06/17/24 Rx mometasone 0.1 % topical cream 1 applic topical BID y 06/20/24 06/20/24 History Past Med/Surg History Problem List SHELBY (acute kidney injury) (Acute) Fall (Acute) Urinary tract infection (Acute) Right hip pain Incomplete bladder emptying Scoliosis of lumbar region due to degenerative disease of spine in adult Microscopic hematuria Low back pain Disc degeneration, lumbar Urinary urgency Urinary frequency UTI (urinary tract infection) Near syncope Chronic UTI Calcification of both carotid arteries Dysphagia CHF (congestive heart failure) Alveolar emphysema of lung Diarrhea Ventricular tachycardia, non-sustained Postmenopausal atrophic vaginitis Rosacea Psoriasis Postmenopausal hormone replacement therapy Osteopenia Chronic interstitial cystitis Cystocele Exertional shortness of breath Ex-smoker MARIAMA (obstructive sleep apnea) Knee pain Recurrent UTI Urinary incontinence Ventricular ectopy (Chronic) Medical History Acute UTI Seborrheic keratosis Rectocele Menopausal symptoms COPD with emphysema Abnormal chest CT Neurofibroma Migraine Surgical History S/P tonsillectomy and adenoidectomy S/P foot surgery S/P appendectomy History of dilation and curettage H/O sinus surgery History of cataract surgery Family History Grandmother (Maternal) Colorectal cancer Family/Other Ovarian cancer first cousin Aunt Myocardial infarction Uncle Stroke Other Breast cancer Denies family history of Prostate cancer Lung cancer Social History Smoking Status: Never smoker Tobacco Type: Cigarettes Age Started Using Tobacco: 16; Age Quit Using Tobacco: 45; packs per day: 2; Second Hand Exposure: No; Do You Dip or Chew Tobacco: No; Hx Alcohol Use: Yes Alcohol type: wine Alcohol Intake Frequency: Monthly or Less Hx Substance Use: No Preferred Language: Telugu Communication Ability: Effective Visual Impairment: Limited Hearing Ability: Normal [employer] Car[employer] Operator Required: No Beliefs That Will Affect Care: None marital status: Current Living Situation: Other Current Living Situation Comment: Daughter current occupational status: employed 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 How many Children do You have: 3 Other Information That Helps Us Care for You: No Feels Safe at Home: Yes Safety Concerns: Feels Safe At This Time Childhood Exposure to Second-Hand Smoke: Yes Diet: regular caffeine: No during the past year weight has: remained stable Dental Care, Regularly: Yes Physical Activity Frequency: 3-4 Times per Week Seatbelt Use: always Sunscreen Use: Yes Assistive Devices: Cane and Walker Review of Systems Review of Systems: All systems reviewed & are unremarkable except as noted in Subjective Physical Exam Physical Exam: General: Appearing ill, rigors Skin: Warm and dry Head: Normocephalic, atraumatic Eyes: PERRL, conjunctivae clear, sclera non-icteric ENT: External ear and ear canal without swelling; nose atraumatic Neck: Supple, no LAD Cardio: Tachycardia, regular rhythm, no M/G/R, S1 and S2 normal Resp: No respiratory distress, bilateral expiratory wheezing throughout, otherwise w/o rales or rhonchi Abdomen: Soft, symmetric, nontender; No masses or hepatosplenomegaly; Bowel sounds normoactive; No CVA tenderness MSK: No deformities, full ROM throughout; pulses palpable and equal; trace pitting edema BLE. Neuro: Awake, alert; CN grossly intact Psych: Slightly confused, able to state name and locations Daughter present in room at time of visit. Results & Data Results & Data Vital Signs (Past 12 Hours) Vital Signs Temp Pulse Pulse Resp BP BP Pulse Ox 06/20/24 17:00 77 16 98/48 L 96 06/20/24 15:24 86 16 81/48 L 95 06/20/24 14:47 36.4 C L 97 H 16 100/55 L 96 O2 Del Method 06/20/24 17:00 Room Air 06/20/24 15:24 Room Air 06/20/24 14:47 Room Air Laboratory Results 06/20/24 17:30 Urine Culture - Pending Urine,Clean Catch 06/20/24 06/20/24 06/20/24 17:30 15:56 15:01 WBC 13.41 H RBC 4.08 L Hgb 12.4 Hct 36.2 L MCV 88.7 MCH 30.4 MCHC 34.3 RDW Std Deviation 46.0 RDW Coeff of Rosalba 14.2 Plt Count 136 MPV 10.5 Immature Gran % (Auto) 0.7 Neut % (Auto) 93.7 Lymph % (Auto) 1.6 White % (Auto) 2.6 Eos % (Auto) 1.1 Baso % (Auto) 0.3 Neut # (Auto) 12.56 H Lymph # (Auto) 0.21 L White # (Auto) 0.35 Eos # (Auto) 0.15 Baso # (Auto) 0.04 Immature Gran # (Auto) 0.10 Toxic Vacuolation 1+ Dohle Bodies 1+ Sodium 132 L Potassium 3.9 Chloride 100 Carbon Dioxide 20 L Anion Gap 12 H BUN 20 Creatinine 1.23 H Est Cr Clr Drug Dosing 34.6 eGFR 43.60 BUN/Creatinine Ratio 16.3 Glucose 165 H Calcium 8.8 Total Bilirubin 0.7 AST 33 ALT 19 Alkaline Phosphatase 96 Total Protein 7.1 Albumin 3.8 Globulin 3.3 Albumin/Globulin Ratio 1.2 Urine Color Yellow Urine Appearance Cloudy A Urine pH 5.5 Ur Specific [place] 1.019 Urine Protein 2+ H Urine Glucose (UA) Negative Urine Ketones Trace H Urine Blood 2+ H Urine Nitrite Positive A Urine Bilirubin Negative Urine Urobilinogen Negative Ur Leukocyte Esterase 2+ H Urine WBC (Auto) 21-50 H Urine RBC (Auto) 0-2 U Hyaline Cast (Auto) 11-20 H U Epithel Cells (Auto) >20 H Urine Bacteria (Auto) 2+ H SARS-CoV-2 (PCR) NEGATIVE Influenza Type A (PCR) Negative Influenza Type B (PCR) Negative RSV (RT-PCR) Negative Diagnostic Findings Forearm X-Ray 06/20/24 14:54 XR forearm LT 2V CLINICAL HISTORY: Forearm trauma TECHNIQUE: 2 views of the left forearm were obtained. Comparison: None available at the time of this dictation. FINDINGS: There is no evidence of acute fracture or dislocation. Joint spaces are well- preserved. No soft tissue abnormality is seen. IMPRESSION: No evidence of acute osseous injury. ACT 112: Negative or not required by law. Electronically signed by: Paulo Ibrahim M.D. 06/20/2024 3:[address] 06/20/24 15:46 Clinical history: Trauma Technique: Axial computed tomography images were obtained of the cervical spine without intravenous contrast. Sagittal and coronal reconstructions were obtained Findings: No fracture is identified. No listhesis is seen. No focal osseous lesion is evident. There is atlantoaxial osteoarthritis At C2-3, there is a disc bulge without spinal stenosis. There is left neural foramen narrowing affect the left C3 nerve root At C3-4, there is spinal stenosis due to a disc bulge and a central to left paracentral disc protrusion. There is left greater than right neural foramen narrowing that may affect the C4 nerve root At C4-5, there is spinal stenosis due to a disc bulge and a central disc protrusion. There is bilateral neural foramen narrowing that may affect the exiting C5 nerve roots At C5-6, there is mild spinal stenosis due to a disc bulge and a left paracentral disc protrusion. There is left greater than right neural foramen narrowing that may affect the left C6 nerve root At C6-7, there is a disc bulge without spinal stenosis. The neural foramen are patent At C7-T1, there is a mild disc bulge. There is no spinal stenosis. The neural foramen are patent There are irregular opacities in the lung apices, likely due to pleural-parenchymal scarring. There is a small nodule or cyst in the right thyroid lobe. No foreign body is seen Impression: 1. No definite cervical spine fracture 2. Spinal stenosis from C3-4 through C5-6 3. Left C2-3 and C3-4, bilateral C4-5, and left C5-6 neural foramen narrowing. This may affect the exiting nerve roots 4. Small thyroid lesion, likely benign. A follow-up thyroid ultrasound could be obtained Electronically signed by Curtis Dennis 06-20-2024 4:[address] 06/20/24 15:46 Clinical History: Fall Technique: Axial computed tomography images were obtained of the brain without intravenous contrast. Findings: There is diffuse cerebral atrophy, within expected limits for the patient's age. Areas of decreased attenuation are seen within the periventricular white matter, likely representing chronic small vessel ischemic disease. There is no definite sign of acute or old infarction. No intracranial hemorrhage is evident. No definite mass lesion is seen on this noncontrast examination. There is no midline shift or other form of herniation. No hydrocephalus is seen. No fracture is identified. The orbits and the visualized paranasal sinuses appear unremarkable. The mastoid air cells appear clear. Impression: 1. Cerebral atrophy and chronic small vessel ischemic disease 2. Otherwise unremarkable noncontrast CT of the brain Electronically signed by Curtis Dennis 06-20-2024 4:39 PM Chest X-Ray 06/20/24 15:47 INDICATION: Chest pain. TECHNIQUE: Frontal radiograph of the chest. COMPARISON: Radiograph from 08/29/2021. FINDINGS: Mild cardiomegaly. Chronic appearing interstitial lung markings. Chronic blunting of the left costophrenic angle. Linear scarring/atelectasis in the left lower lobe. Mild pulmonary vascular congestion. No infiltrate, pleural effusion or pneumothorax. No acute osseous abnormality evident. IMPRESSION: Mild pulmonary vascular congestion. Electronically signed by Reggie Jackson 06-20-2024 4:14 PM Pelvis X-Ray 06/20/24 15:47 INDICATION: Pain and injury. TECHNIQUE: One view of the pelvis. COMPARISON: No relevant priors. FINDINGS: No acute fracture or dislocation. No lytic or blastic bony lesions seen. Mild bilateral hip joint space loss. Soft tissues appear unremarkable. IMPRESSION: No acute osseous abnormality evident. Electronically signed by Reggie Jackson 06-20-2024 4:14 PM Medications Administered Ceftriaxone 2g IV x 1 1.5 L NSS IV Code Status & VTE Plan Code Status Full Supervising Physician Co-Signing Physician Notes Patient seen and examined, chart reviewed, case discussed with CLARY Domingo and I agree with the assessment and plan as above. Patient presenting after a fall at home. Daughter was present and helped patient up. Patient with fever, tachycardia, tachypnea in the ER - developed rigors - episode of acute agitation. Symptoms improved with IV Tylenol and neb treatment Patient improved on re-evaluation. Breathing has improved Skin - no rash HEENT - MMM, Neck supple Heart - +S1/S2, irregularly irregular, tachycardic Lungs - scattered end-expiratory wheezing, diminished in bases Abd - +BS, soft, NT/ND Ext - warm, well perfused, no clubbing/cyanosis or edema Labs and images reviewed WBC=13.41 with neutrophil predominance SHELBY with Cr=1.23 HCO3=20 UA with suggestion of infection Assessment/Plan UTI - follow culture. Continue Ceftriaxone SHELBY - gentle IVF given, appx 1200mL in the ER - fluids stopped due to development of respiratory distress. Consider additional IVF pending results of AM labs COPD - suspect exacerbation - scheduled nebs, Xopenex due to elevated HR Remainder as above PG Care Time/CCT Total # of Minutes Spent Total Time Spent with Patient: Total time spent is greater than 50% in coordination of care (as documented) at patient's floor/unit and/or counseling patient: Coding Level of Care Code 56030 INT INP/OBS CARE MIN Diagnoses Urinary tract infection N39.0 Hematuria presence: without hematuria Urinary tract infection type: site unspecified SHELBY (acute kidney injury) N17.9 Time Spent (min) 80 (1) Urinary tract infection Hematuria presence: without hematuria Urinary tract infection type: site unspecified Qualified Code(s): N39.0 - Urinary tract infection, site not specified
[2024-06-20] MEDS: cefTRIAXone SODIUM 2,000 MG/50 ML BAG IV STA (19:37)
[2024-06-20] MEDS ORDERED: FLUTICASONE PROPIONATE NA SPR 16 GM BTL PRN (20:07)
[2024-06-20] MEDS ORDERED: ALBUTEROL HFA 8 GM INHALER INH PRN (20:07)
[2024-06-20] MEDS ORDERED: ALBUTEROL 0.083% NEBU SOLN 3 ML VIAL INH PRN (20:11)
[2024-06-20] MEDS: LEVALBUTEROL HCL 0.63 MG/3 ML NEB NEB STA (20:23)
[2024-06-20] MEDS: IPRATROPIUM BROMIDE NEB SOLN 0.02% 0.5MG/2.5ML VIAL NEB STA (20:23)
[2024-06-20] MEDS: ACETAMINOPHEN 1,000 MG/100 ML VIAL IV STA (20:27)
[2024-06-20] MEDS ORDERED: METOPROLOL SUCC 25MG EXT REL TAB PO SCH (21:00)
[2024-06-20] MEDS: ACETAMINOPHEN 1,000 MG/100 ML VIAL IV SCH (21:16)
[2024-06-20] MEDS: FUROSEMIDE INJ 20 MG/2 ML VIAL IV STA (21:21)
[2024-06-20] MEDS: IPRATROPIUM BROMIDE HFA INHALER INH SCH (21:50)
--- OUTSIDE RECORDS SUMMARY | 2024-06-20 21:54 | External Medical Summary | Summary of Care ---
Author Name Unknown Organization [facility] Address [address] [place] [address] Phone [phone] Care Team Providers Care Office Administration Name Role Phone Amarjit Becker MD Primary Care Provide r Reason for Visit * Reason Onset Date Comments Medication Refill 06/07/2024 Encounter Details Date Type Department Care Team (Late st Contact Info) Description 06/07/2024 Refill Cardiology, [facility] [address] [place] [id number] Julio Petit MD [address] [place] [id number] Nonischemic cardiomyopathy (HCC); NSVT (nonsustained ventricular tachycardia) (HCC); Chronic systolic (congestive) heart failure (HCC) Allergies Active Allergy Reactions Criticality Noted Date Comments Latex 10/29/2012 Itching Lisinopril Cough 05/20/2019 Morphine And Codeine 03/12/2000 Nauseated Prednisone 11/24/2000 rash Sulfa Antibiotics 03/12/2000 Nausea documented as of this encounter (statuses as of 06/09/2024) Medications ASPIRIN EC LOW STRENGTH TBEC 81 MG OR take one tablet daily 34 11 10/18/19 04 Active FISH OIL 1000 MG PO CAPS Take 1 Capsule by mouth in the morning. 0 07/17/19 07 Active CENTRUM SILVER PO TABSIndications:Agustina ritis and gastroduodenitis one a day 30 0 03/27/20 09 Active CALCIUM 600+D 600-200 MG-UNIT PO TABS Take 1 Tablet by mouth in the morning. Active GLUCOSAMINE PLUS VITAMIN D 1500-200 MG-UNIT PO TABS one daily Acti ve VITAMIN C 500 MG PO TABS one daily Active FLONASE 50 MCG/ACT NA SUSPIndications:Naeem rgic rhinitis due to other allergen 2 squirts each nostril once daily 3 Bottle 3 07/02/19 13 Active Additional Information Patient taking differently:NasalPRN, Reported on 04/14/2023 estrogens, conjugated (PREMARIN) 0.625 MG/GM vaginal cream Administer into the vagina once a week. 1/4 of applicator on & Thursday Active Coenzyme Q10 (CO Q 10) 100 MG CAPS Take 100 mg by mouth in the morning. Active Cholecalciferol (VITAMIN D-3) 1000 units Capsule Take 1 Capsule by mouth in the morning. Active Probiotic Product (PROBIOTIC & ACIDOPHILUS EX ST) Capsule Take by mouth 1 Capsule daily . Active Turmeric Curcumin 500 MG CAPS Active Prevagen 10 MG Oral Capsule (Apoaequorin) Take 10 mg by mouth in the morning. Active Tiotropium [place] Monohydrate 2.5 MCG/ACT Inhalation Aerosol Solution (Spiriva Respimat) Inhale 2 Puffs by mouth in the morning. Active Albuterol Sulfate 0.63 MG/3ML Inhalation Nebulization Solution (Accuneb) Inhale 1 Vial via nebulizer every evening. Active Sodium Chloride 7 % Inhalation Nebulization Solution (Hyper-Naveed) Inhale via nebulizer as needed. 05/07/20 22 Active Loratadine 10 MG Oral Tablet (Claritin) Take 1 Tablet by mouth as needed for Rhinitis. 34 Tablet 5 07/23/19 23 Active Spironolactone 25 MG Oral Tablet (Aldactone)Indicatio ns:Ventricular ectopy TAKE 1/2 TABLET BY MOUTH EVERY DAY 45 Tablet 3 07/20/19 24 Active Cetirizine HCl 10 MG Oral Tablet (ZyrTEC Allergy) Take 1 Tablet by mouth in the morning. Active D-Mannose 500 MG Oral Capsule Take 500 mg by mouth in the morning. Active Metoprolol Succinate ER 25 MG Oral Tablet Extended Release 24 Hour (toPROL XL)Indications:Nonis chemic cardiomyopathy (HCC),NSVT (nonsustained ventricular tachycardia) (HCC),Chronic systolic (congestive) heart failure (HCC) TAKE 1.5 TABS BY MOUTH IN MORNING AND 1 TAB BY MOUTH IN EVENING 225 Tablet 3 11/18/19 24 Active Furosemide 20 MG Oral Tablet (Lasix)Indications:C hronic systolic congestive heart failure (HCC) TAKE 1 TABLET TWICE WEEKLY AND NEEDED FOR FLUID RETENTION 30 Tablet 3 11/18/19 24 Active Telmisartan 20 MG Oral Tablet (Micardis)Indication s:Ventricular ectopy TAKE 1 TABLET BY MOUTH EVERY DAY 90 Tablet 3 12/23/19 24 Active documented as of this encounter (statuses as of 06/09/2024) Active Problems Problem Noted Date Diagnosed Date Nonischemic cardiomyopathy 01/28/2020 Beni-Enrique respiration 09/25/2017 Ventricular ectopy 02/03/2012 RECURRENT ACUTE SINUSITIS 10/04/2008 VOICE DISTURBANCE,HOARSENESS 10/04/2008 Sleep apnea 03/05/2007 Dyspnea 10/10/2003 MIGRAINE, UNSPECIFIED, WITHO UT MENTION OF INTRACTABLE MIGRAINE Other allergic rhinitis Overview (04/07/2017): ICD-10 update of inactive term documented as of this encounter (statuses as of 06/09/2024) Resolved Problems Problem Noted Date Diagnosed Date Resolved Date Hypertension goal BP (blood pressure) < 140/80 11/15/2012 11/15/2012 Dysphagia 04/10/2009 11/28/2011 Overview (09/06/2015): ICD-10 update of inactive term Dyspnea and respiratory abnormality 10/04/2008 11/28/2011 Overview (04/07/2017): ICD-10 update of inactive term Temporomandibular joint diso rders, unspecified 10/04/2008 11/28/2011 Esophageal reflux 10/04/2008 11/28/2011 Other specified forms of hearing loss 10/04/2008 11/28/2011 Other psoriasis 07/20/2003 11/28/2011 Parapsoriasis 02/23/2003 11/28/2011 Overview (03/05/2007): Followed By Dr. Escobar documented as of this encounter (statuses as of 06/09/2024) Immunizations Name Administration Dates Next Due DTaP Dipth/Tet/Acell Pertussis (Infanrix), Peds 10/13/2018 H1N1 2009 Influenza, IM 08/22/2009 Pneumococcal Polysaccharide PPV23 (Pneumovax) 04/21/2006 Seasonal Influenza Vac., MDV , IM, 0.5 mL (Fluzone) 03/03/2012,03/11/2011,03/27/2010,02/14,03/23/2008,03/24/2007,04/21/20 06 03/09/2010 Seasonal Influenza, Quadriva lent Hd (Fluzone Hd) 02/28/2023,03/22/2022 Seasonal Influenza, Trivalen t, Adjuvanted, 65+ YRS, PF, (Fluad) 03/15/2019 TD, Preservative Free 11/20/2008 Varicella Zoster Vaccine (Adult) 07/12/2008 documented as of this encounter Social History Tobacco Use Types Packs/Day Years Used Date Smoking Tobacco: Former Cigarettes 1.5 30 0 02/02/1957 - 02/02/1987 Smokeless Tobacco: Never Comments:quit smoking about 1986 Alcohol Use Standard Drinks/Week Comments No 0 (1 standard drink = 0.6 oz pur e alcohol) occas Comments No Sex and Gender Information Value Date Recorded Sex Assigned at Not on file Legal Sex Female 5:56 AM EST Gender Identity Not on file Sexual Orientation Not on file 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 Pending Prescriptions: Disp Refills Metoprolol Succinate ER 25 MG Oral Tablet*225 Ta*3 Sig: Take 1.5 tabs by mouth in morning and 1 tab by mouth in evening Last Visit: 10/14/2023 (in office), 01/26/2020 (telemedicine) Next Visit: Visit date not found If no future appointments scheduled, and last appointment is greater than a year ago, please schedule patient for a follow-up appointment Last date the medication was ordered: 11/18/23 Pharmacy: [id number] [address] [facility] Is this request for a controlled substance?No it is not controlled. Urine Drug Screen:No results found for this or any previous visit. Patient Phone Numbers Labs: Lab Results Component Value Date/Time CREAT 1.07 03/19/2021 12:00 AM CREAT 0.9 02/03/2012 04:25 PM POTASSIUM 4.9 03/19/2021 12:00 AM POTASSIUM 4.3 02/03/2012 04:25 PM TSH 1.290 03/19/2021 12:00 AM TSH 2.14 02/18/2011 09:38 AM LDL 88 02/18/2011 09:38 AM LDL 76 10/14/2006 08:56 AM LDLCALC 82 03/19/2021 12:00 AM ALT 27 12/26/2016 12:00 AM ALT 19 10/22/2009 03:53 PM HGBA1C 6.0 (A) 03/19/2021 12:00 AM documented in this encounter Plan of Treatment Scheduled Procedures Name Priority Associated Diagnoses Date/Ti me COLONOSCOPY FLEXIBLE PROXIMA L DIAGNOSTIC Recall Encounter for screening colonoscopy Health Maintenance Due Date Last Done Comments DXA Scan 1940 Depression Screening 1952 Colonoscopy 08/27/2023 08/26/2018, 08/13, 09/01/2003 COVID-19 Vaccine ( season) 2024 03/28/2023, 03/28/2023, 04/07/2022, Additional history exists Influenza Vaccine (FLU shot) (#1) 2024 02/28/2023, 03/22/2022, 02/27/2020, Additional history exists DTap/Tdap Vaccines (2 - Tdap) 10/13/2028 10/13/2018, 11/20/2008 Pneumococcal Vaccine: 50+ Years Completed 12/01/2015, 04/21/2006 Zoster Vaccines Completed 01/13/2018, 10/13, 07/12/2008 RETIRED - COLONOSCOPY-EVERY 5 YRS AGES 18-100 Discontinued 08/26/2018, 08/26/2018, 09/01/2003 HPV (Gardasil) Vaccine Aged Out No lo nger eligible based on patient's age to complete this topic Hepatitis B Vaccine Aged Out No longe r eligible based on patient's age to complete this topic MENINGOCOCCAL (MENACTRA/MENVEO) Aged Out No longer eligible based on patient's age to complete this topic documented as of this encounter Medical Devices Not on filedocumented as of this encounter Visit Diagnoses Diagnosis Nonischemic cardiomyopathy (HCC) Other primary cardiomyopathies NSVT (nonsustained ventricular tachycardia) (HCC) Paroxysmal ventricular tachycardia Chronic systolic (congestive) heart failure (HCC) documented in this encounter Advance Directives * No Code Status (Latest Code Status on File) Date Activated Date Inactivated Comments 11/22/2004 11:32 AM 11/22/2004 11:32 AM Care Teams Office Administration Relationship Specialty Start Date End Date Amarjit Becker MD [address] [facility] [address] [place] [address] PCP - General Family Medicine 12/28/23 documented as of this encounter
[2024-06-20] MEDS ORDERED: bisacodyL 5 MG TABEC PO PRN (22:27)
[2024-06-20] MEDS: METOPROLOL SUCC 25MG EXT REL TAB PO SCH (22:40)
[2024-06-20] MEDS: HEPARIN SOD 5,000 UNIT/0.5 ML VIAL SQ SCH (22:40)
[2024-06-20] MEDS: LEVALBUTEROL 1.25 MG/3 ML NEB NEB SCH (23:28)
[2024-06-20] MEDS: IPRATROPIUM BROMIDE NEB SOLN 0.02% 0.5MG/2.5ML VIAL NEB SCH (23:28)
[2024-06-20] MEDS: LEVALBUTEROL 0.31MG/3 ML VIAL NEB PRN (23:28)
--- NOTE | 2024-06-21 01:09 | CT Scan Report ---
Exam(s): CT ABDOMEN + PELVIS Without Contrast EXAM: CT Abdomen and Pelvis Without Intravenous Contrast CLINICAL HISTORY: Reason for exam: UTI, fevers, AMS. TECHNIQUE: Axial computed tomography images of the abdomen and pelvis without intravenous contrast. Automated exposure control was utilized for the study. A dose lowering technique was utilized adhering to the principles of ALARA. COMPARISON: No relevant prior studies available. FINDINGS: Limitations: Exam limited secondary to lack of IV contrast. Lung bases: Peribronchial thickening and mucus plugging in the right middle lobe. Compressive atelectasis of both lower lobes. Pleural space: Small bilateral pleural effusions right greater than left. ABDOMEN: Liver: Unremarkable. Gallbladder and bile ducts: Unremarkable. No calcified stones. No ductal dilation. Pancreas: Unremarkable. No ductal dilation. Spleen: Unremarkable. No splenomegaly. Adrenals: Unremarkable. No mass. Kidneys and ureters: Unremarkable. No obstructing stones. No hydronephrosis. Stomach and bowel: Diverticulosis without evidence of diverticulitis. No obstruction. PELVIS: Appendix: No findings to suggest acute appendicitis. Bladder: Unremarkable. No stones. Reproductive: Unremarkable as visualized. ABDOMEN and PELVIS: Intraperitoneal space: Unremarkable. No free air. No significant fluid collection. Bones/joints: No acute fracture. No dislocation. Soft tissues: Unremarkable. Vasculature: Unremarkable. No abdominal aortic aneurysm. Lymph nodes: Unremarkable. No enlarged lymph nodes. IMPRESSION: No acute findings in the abdomen or pelvis. Small bilateral pleural effusions Compressive atelectasis of both lower lobes Diverticulosis without evidence of diverticulitis Electronically signed by: Stephen Siddiqui MD 06/21/24 01:08 AM
--- NOTE | 2024-06-21 03:03 | Billing Data ---
Date of Service June 20, 2024 Coding Level of Care Code 40552 INT INP/OBS CARE
[2024-06-21 06:35] LABS: BUN Creatinine Ratio 22.1 (10-20); Calcium 7.8 mg/dl (8.6-10.3); Potassium 3.9 mmol/L (3.5-5.1)
[2024-06-21 07:20] LABS: Hematocrit (blood only) 32.3 % (37.0-47.0); Mean Corpuscular Hemoglobin 30.4 pg (25.0-34.0); Mean Corpuscular Hgb Conc 34.1 g/dL (32.0-36.0); Mean Corpuscular Volume 89.2 fL (80.0-100.0); Mean Platelet Volume 10.7 fL (9.4-12.4); Platelet Count 99 K/uL (130-400); RDW Coefficient of Variation 14.4 % (11.5-14.5); RDW Standard Deviation 46.9 fL (36.4-46.3); Red Blood Count 3.62 M/uL (4.20-5.40)
[2024-06-21 07:21] LABS: Platelet Estimate Decreased (Normal)
[2024-06-21] MEDS: METOPROLOL SUCC 25MG EXT REL TAB PO SCH (07:40)
[2024-06-21] MEDS: UMECLIDINIUM BROMIDE 62.5MCG/BLISTER 7 PUFFS/INHALER INH SCH (07:40)
[2024-06-21] MEDS: ASPIRIN 81 MG ECTAB PO SCH (07:41)
[2024-06-21] MEDS: CHOLECALCIFEROL 10 MCG (400 UNITS) TAB PO SCH (07:41)
[2024-06-21] MEDS: CEROVITE ADV FORMULA TAB PO SCH (07:42)
[2024-06-21] MEDS: OMEGA-3 (PURIFIED FISH OIL) 1 GM CAP PO SCH (07:42)
[2024-06-21] MEDS: CALCIUM 600MG + VIT D 400 IU TAB PO SCH (07:42)
[2024-06-21] MEDS: ASCORBIC ACID 500 MG TAB PO SCH (07:42)
[2024-06-21] MEDS: POLYETHYLENE (MIRALAX) 17 GM PACK PO SCH (07:42)
[2024-06-21] MEDS ORDERED: NON-FORMULARY MEDICATION (Coenzyme Q10 100 mg capsule) PO SCH (09:00)
[2024-06-21] MEDS ORDERED: D MANNOSE PO SCH (09:00)
[2024-06-21] MEDS ORDERED: GLUCOSAMINE SULFATE 500 MG PO SCH (09:00)
[2024-06-21] MEDS ORDERED: DIGESTIVE ENZYMES PO SCH (09:00)
[2024-06-21 09:21] LABS: iSTAT Arterial Blood Gas HCO3 16 meg/L (19-24); iSTAT Arterial Blood Gas pCO2 24 mmHg (35-46); iSTAT Arterial Blood Gas pH 7.45 (7.35-7.45); iSTAT Arterial Blood Gas pO2 89 mmHg (80-95); iSTAT Carbon Dioxide 17 mmol/L (24-31); iSTAT Hematocrit 36 % (37-47); iSTAT Hemoglobin 12.2 g/dl (12.0-16.0); iSTAT Potassium 4.2 mmol/L (3.3-5.0); iSTAT Sodium 133 mmol/L (135-144)
--- NOTE | 2024-06-21 14:19 | Hospitalist Progress Note ---
Date of Service June 21, 2024 Assessment & Plan (1) Urinary tract infection: (2) SHELBY (acute kidney injury): Plan 83-year-old female PMHx COPD with emphysema, neurofibroma, and migraines presenting to ED following fall from standing at home, all imaging w/o traumatic findings. 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 Upon admitting evaluation, patient was stable and conversing with provider. DO and PA then notified of the abrupt change in patient, becoming more feverish and rigorous w/ change in mental status, requiring supplemental O2. Had resolved w/ interventions. Received 1.5L NSS and Ceftriaxone in ED. Admission for treatment of UTI and SHELBY. Fevers, rigors. Suspected UTI, DDx includes viral respiratory illness Multiple falls, fevers, rigors on evaluation. Did not have urinary symptoms. UA is with greater than 100 K CFU for Enterobacter cloacae complex, sensitivities pending. Leukocytosis now downtrending suggestive of bacterial infection as source. Continue Rocephin Follow UCX for sensitivities, not yet available 06/21 Would also have a viral infection, she has had development of a sore throat and dry cough. Quad screen was negative. No evidence of pneumonia on chest x- ray, mild pulmonary vascular congestion but edema is present. BioFire is pending due to sore throat and dry cough CTA/P: No acute findings. Small bilateral pleural effusions are noted. SHELBY With history of incomplete bladder emptying Creatinine 1.23 on admission, received IV fluids 1 and half liters in the ER but additional deferred due to pulmonary vascular congestion and mild effusions on chest x-ray Creatinine improved to 0.95 and normalized. Has some crackles, mucous membranes are tacky. On chart review dry weight appears to be about 71-73 kg, she is 73 kg. Borderline hypotensive, 104/54. Antihypertensives held. Will get daily standing weights. Diuresis deferred, additional IV fluids deferred and orals encouraged. COPD/emphysema No wheezing No oxygen requirements Continue BiPAP at night, nebs as needed PT/OT pending Dispo: PCU VTE Prophylaxis: Heparin Admission and Anticipated Discharge Date Admission Date: June 20, 2024 Subjective Sonam was seen at the bedside. She reports that overall she feels okay, but weak and shaky. She did have a fevers or chills overnight but she was cold. She has started to have a dry cough, nonproductive. Has had the development of fine bibasilar lower crackles, admitting chest x-ray showed mild pulmonary vascular congestion but without obvious edema Physical Exam Physical Exam: General: A&Ox3. NAD. Cooperative. HEENT: Atraumatic, normocephalic. Pulm: Bibasilar crackles, fine, incompletely clear on deep breathing symmetrical chest rise. No increased work of breathing. No respiratory distress. Cardiac: RRR, -mrg. Radial pulses intact and symmetrical. Abdominal: Nontender, nondistended, soft. BS present. Results & Data Results & Data Vital Signs (Past 12 Hours) Vital Signs Temp Pulse Pulse Resp BP BP Pulse Ox 06/21/24 12:52 104/54 L 06/21/24 11:54 36.8 C 88 19 95/54 L 94 06/21/24 11:10 82 14 100 06/21/24 09:00 88 06/21/24 09:00 06/21/24 07:41 36.5 C 83 18 100/48 L 100 06/21/24 07:27 83 14 99 06/21/24 03:18 87 16 99 06/21/24 02:44 36.7 C 101 H 20 101/60 95 O2 Del Method O2 Flow Rate FiO2 06/21/24 12:52 06/21/24 11:54 Room Air 06/21/24 11:10 Room Air 21 06/21/24 09:00 06/21/24 09:00 Room Air 06/21/24 07:41 Nebulizer 06/21/24 07:27 Nasal Cannula 1 06/21/24 03:18 Nasal Cannula 3 06/21/24 02:44 Nasal Cannula 2.5 PG Care Time/CCT Total # of Minutes Spent Total Time Spent with Patient: Total time spent is greater than 50% in coordination of care (as documented) at patient's floor/unit and/or counseling patient: Coding Level of Care Code 15662 SUB INP/OBS CARE 2/35MIN Diagnoses Urinary tract infection N39.0 Hematuria presence: without hematuria Urinary tract infection type: site unspecified SHELBY (acute kidney injury) N17.9 (1) Urinary tract infection Hematuria presence: without hematuria Urinary tract infection type: site unspecified Qualified Code(s): N39.0 - Urinary tract infection, site not specified
[2024-06-21 16:22] LABS: Adenovirus PCR Not Detected (NotDetected); Bordetella parapertussis PCR Not Detected (NotDetected); Bordetella pertussis PCR Not Detected (NotDetected); Chlamydia pneumoniae PCR Not Detected (NotDetected); Coronavirus 229E PCR Not Detected (NotDetected); Coronavirus CoV-2 (COVID19)PCR Not Detected (NotDetected); Coronavirus HKU1 PCR Not Detected (NotDetected); Coronavirus NL63 PCR Not Detected (NotDetected); Coronavirus OC43PCR Not Detected (NotDetected); Human Metapneumovirus PCR Not Detected (NotDetected); Influenza A PCR Not Detected (NotDetected); Influenza B PCR Not Detected (NotDetected); Mycoplasma pneumoniae PCR Not Detected (NotDetected); Parainfluenza Virus 1 PCR Not Detected (NotDetected); Parainfluenza Virus 2 PCR Not Detected (NotDetected); Parainfluenza Virus 3 PCR Not Detected (NotDetected); Parainfluenza Virus 4 PCR Not Detected (NotDetected); Respiratory Syncytial VirusPCR Not Detected (NotDetected); Rhinovirus/Enterovirus PCR Not Detected (NotDetected)
[2024-06-21] MEDS: SODIUM CHLORIDE 0.65% NA SOLN 45 ML (OCEAN) ONE (18:34)
[2024-06-21] MEDS: cefTRIAXone SODIUM 2,000 MG/50 ML BAG IV SCH (20:54)
[2024-06-22 06:53] LABS: Hematocrit (blood only) 35.2 % (37.0-47.0); Hemoglobin 11.9 g/dl (12.0-16.0); Mean Corpuscular Hemoglobin 30.4 pg (25.0-34.0); Mean Corpuscular Hgb Conc 33.8 g/dL (32.0-36.0); Mean Platelet Volume 11.7 fL (9.4-12.4); Platelet Count 98 K/uL (130-400); RDW Coefficient of Variation 14.6 % (11.5-14.5); RDW Standard Deviation 48.1 fL (36.4-46.3); Red Blood Count 3.91 M/uL (4.20-5.40); White Blood Count 8.13 K/ul (4.8-10.8)
[2024-06-22 06:54] LABS: BUN Creatinine Ratio 21.4 (10-20); Calcium 8.4 mg/dl (8.6-10.3); Creatinine Clr Calc Pharmacy 50.9 ml/min; Potassium 4.3 mmol/L (3.5-5.1)
--- NOTE | 2024-06-22 07:21 | Hospitalist Progress Note ---
Date of Service June 22, 2024 Assessment & Plan (1) Urinary tract infection: (2) SHELBY (acute kidney injury): Plan 83-year-old female PMHx COPD with emphysema, neurofibroma, and migraines presenting to ED following fall from standing at home, all imaging w/o traumatic findings. 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 Upon admitting evaluation, patient was stable and conversing with provider. DO and PA then notified of the abrupt change in patient, becoming more feverish and rigorous w/ change in mental status, requiring supplemental O2. Had resolved w/ interventions. Received 1.5L NSS and Ceftriaxone in ED. Admission for treatment of UTI and SHELBY. SIRS Fevers, rigors. Suspected UTI, respiratory biofire negative UA is with greater than 100 K CFU for Enterobacter cloacae complex, powell sensitive. since now dev afib, may consider if inducible resistance change to cefepime per discussion with pharmacy CTA/P: No acute findings. Small bilateral pleural effusions are noted. afib rvr, on metoprolol, given digoxin 0.25 x 2, checked echo ( fairly normal x MR) will not start on AC unless persists till , as could be from stressor of uti SHELBY-resolved With history of incomplete bladder emptying - holding telmiartan and spironolactone COPD/emphysema, chronic stable No wheezing No oxygen requirements Continue BiPAP at night, nebs as needed - on metoprolol for history of non sustained v tach PT/OT pending VTE Prophylaxis: Heparin Admission and Anticipated Discharge Date Admission Date: June 20, 2024 Subjective Pt states she feels weak, has post prandial nausea in evening, ? if mediation affect developed non symptomatic afib RVR in late am, bp was soft and was given iv metoprolol x 1 and digoxin 0.25 with repeat in afternoon, this is first recollection of this rhythm for the pt Physical Exam Physical Exam: afib with RVR irreg irreg on monitor lungs are clear abd is soft and non tender, no ruq tenderness Results & Data Results & Data Vital Signs (Past 12 Hours) Vital Signs Temp Pulse Pulse Resp BP BP Pulse Ox 06/22/24 04:18 98.6 F 95 H 16 123/65 98 06/21/24 23:49 98.1 F 90 18 105/57 L 98 06/21/24 21:36 06/21/24 20:00 99.1 F 88 20 126/69 96 06/21/24 19:57 104 H 20 O2 Del Method O2 Flow Rate 06/22/24 04:18 Nasal Cannula 06/21/24 23:49 Nasal Cannula 06/21/24 21:36 Nasal Cannula 2 06/21/24 20:00 Room Air 06/21/24 19:57 Room Air Laboratory Results review cbc review chemistry and mag review urine culture, enterobacter may have inducible resistance PG Care Time/CCT Total # of Minutes Spent Total Time Spent with Patient: Total time spent is greater than 50% in coordination of care (as documented) at patient's floor/unit and/or counseling patient: Coding Level of Care Code 85722 SUB INP/OBS CARE 3/50MIN Diagnoses Urinary tract infection N39.0 Hematuria presence: without hematuria Urinary tract infection type: site unspecified SHELBY (acute kidney injury) N17.9 (1) Urinary tract infection Hematuria presence: without hematuria Urinary tract infection type: site unspecified Qualified Code(s): N39.0 - Urinary tract infection, site not specified
[2024-06-22] MEDS: MAGNESIUM SULFATE / D5W 1 GM/100 ML BAG IV ONE (09:48)
[2024-06-22] MEDS: METOPROLOL TARTRATE 1 MG/ML VIAL IV PRN (09:49)
[2024-06-22] MEDS: SODIUM CHLORIDE 0.9% 250 ML IV ONE (10:27)
[2024-06-22] MEDS: DIGOXIN 250 MCG in SYRINGE 9 ML IV STA (12:10)
[2024-06-22] MEDS: DIGOXIN 250 MCG in SYRINGE 9 ML IV ONE (17:48)
[2024-06-22] MEDS: CEFEPIME 2000MG 2,000 MG/20 ML SYR IV SCH (17:49)
[2024-06-22] MEDS: METOPROLOL SUCC 25MG EXT REL TAB PO SCH (20:26)
--- NOTE | 2024-06-23 07:13 | Hospitalist Progress Note ---
Date of Service June 23, 2024 Assessment & Plan (1) Urinary tract infection: (2) SHELBY (acute kidney injury): Plan 83-year-old female PMHx COPD with emphysema, neurofibroma, and migraines presenting to ED following fall from standing at home, all imaging w/o traumatic findings. 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 Upon admitting evaluation, patient was stable and conversing with provider. DO and PA then notified of the abrupt change in patient, becoming more feverish and rigorous w/ change in mental status, requiring supplemental O2. Had resolved w/ interventions. Received 1.5L NSS and Ceftriaxone in ED. Admission for treatment of UTI and SHELBY. SIRS Fevers, rigors. Suspected UTI, respiratory biofire negative UA is with greater than 100 K CFU for Enterobacter cloacae complex, powell sensitive. since now dev afib, may consider if inducible resistance change to cefepime per discussion with pharmacy CTA/P: No acute findings. Small bilateral pleural effusions are noted. afib rvr, on metoprolol, given digoxin 0.25 x 2-> checked echo ( fairly normal x MR) seems to persist, increased metoprolol to 50 bid, keep dig at 0.125 mg daily ( level therapeutic 06/23) cardiology consult, start iv heparin, frequrent falls ? apixiban, further discussion needed Hasbled score 4.1 % having only age and medication SHELBY-resolved With history of incomplete bladder emptying - holding telmiartan and spironolactone, BP is lower with increased metoprolol COPD/emphysema, chronic stable No wheezing No oxygen requirements Continue BiPAP at night, nebs as needed - on metoprolol for history of non sustained v tach PT/OT pending VTE Prophylaxis: heparin iv therapeutic Admission and Anticipated Discharge Date Admission Date: June 20, 2024 Subjective no complaints or problems today cardiology starting iv heparin therapeutic poor sleep wants to try melatonin Physical Exam Physical Exam: irregular rate controlled rhythm lungs are clear Results & Data Results & Data Vital Signs (Past 12 Hours) Vital Signs Temp Pulse Pulse Resp BP BP Pulse Ox 06/23/24 03:52 99.0 F 100 H 18 116/56 L 92 06/22/24 23:15 98.1 F 95 H 16 98/59 L 92 06/22/24 22:03 06/22/24 21:55 105 H 06/22/24 19:12 101 H 20 94 O2 Del Method 06/23/24 03:52 Room Air 06/22/24 23:15 Room Air 06/22/24 22:03 Room Air 06/22/24 21:55 06/22/24 19:12 Room Air Laboratory Results review cbc review chemistry PG Care Time/CCT Total # of Minutes Spent Total Time Spent with Patient: Total time spent is greater than 50% in coordination of care (as documented) at patient's floor/unit and/or counseling patient: Coding Level of Care Code 02997 SUB INP/OBS CARE 3/50MIN Diagnoses Urinary tract infection N39.0 Hematuria presence: without hematuria Urinary tract infection type: site unspecified SHELBY (acute kidney injury) N17.9 (1) Urinary tract infection Hematuria presence: without hematuria Urinary tract infection type: site unspecified Qualified Code(s): N39.0 - Urinary tract infection, site not specified
--- NOTE | 2024-06-23 07:24 | Electrocardiogram Report ---
Test Reason : Blood Pressure : */* mmHG Vent. Rate : 117 BPM Atrial Rate : 68 BPM P-R Int : * ms QRS Dur : 94 ms QT Int : 318 ms P-R-T Axes : * 10 13 degrees QTcB Int : 443 ms Atrial fibrillation with rapid ventricular response Low voltage QRS Cannot rule out Anterior infarct (cited on or before 18-Nov-2022) Abnormal ECG When compared with ECG of 18-Nov-2022 13:36, Atrial fibrillation has replaced Sinus rhythm Vent. rate has increased by 51 bpm Questionable change in QRS axis T wave inversion now evident in Inferior leads Nonspecific T wave abnormality now evident in Anterior leads Confirmed by Jaime Sanford ([id number]) on 06/23/2024 7:24:40 AM Referred By: REFERRED SELF Confirmed By: Jaime Sanford
[2024-06-23] MEDS ORDERED: IPRATROPIUM BROMIDE NEB SOLN 0.02% 0.5MG/2.5ML VIAL NEB PRN (08:22)
[2024-06-23] MEDS ORDERED: LEVALBUTEROL 1.25 MG/3 ML NEB NEB PRN (08:22)
--- NOTE | 2024-06-23 08:27 | Cardiology Consultation ---
Date of Consultation June 23, 2024 Assessment & Plan (1) Paroxysmal atrial fibrillation: (2) Urinary tract infection: (3) Fall: (4) Ventricular tachycardia, non-sustained: Plan Patient admitted post fall with weakness and diagnosed with UTI. During admission she developed atrial fibrillation RVR, initially treated with metoprolol and IV digoxin, converting to NSR yesterday, but then reverting back to afib RVR last night. Metoprolol increased to 50 mg BID (home dose was 25 mg BID) Digoxin added. Rates improved this morning and patient not overtly symptomatic. Echo with preserved LVEF, mild LA enlargement. Patient with multiple falls over the last 6 months. 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 [id number] score of at least 5 (Sex, age, HTN, mild CAD) It is likely patient will convert to NSR as she is treated for UTI. Continue metoprolol and digoxin. Would consider transitioning from Sq heparin to IV heparin. Monitor platelet count. Will discuss with Dr. Burris. Also Consider amiodarone if she fails to convert. Amiodarone may be beneficial intermediate to maintain NSR if she is not a candidate for oral anticoagulation given falls. She also has a history of non sustained VT on outpatient telemetry. No VT noted during admission currently. Replace magnesium. History of non ischemic cardiomyopathy wiht recent echo with preserved EF. Mild CAD without obstructive disease. Continue other outpatient meds including ASA. Resume home Telmisartan as BP allows and with improved renal function. (per outpatient records, she takes 20 mg daily continue antibiotics per hospitalist. PT/OT and consider rehab for weakness. I spent a total of 60 minutes on the date of service in preparation, delivery, and documentation of the care provided to this patient, excluding any time spent in the performance of separately billed services. Josie Bello PA-C Department of Cardiology, [facility] This chart was completed in part utilizing Speech Voice Recognition Software. Grammatical errors, random word insertions, pronoun errors, and incomplete sentences are an occasional consequence of this system due to software limitations, ambient noise, and hardware issues. Any formal questions or concerns about the content, text, or information contained within the body of this dictation should be directly addressed to the provider for clarification. Supervising Physician Co-Signing Physician Notes I have personally performed a history and physical examination on the patient. I have reviewed the advance practitioner's documentation, and I agree with, and take responsibility for the plan of care. 83-year-old female admitted with mechanical fall, weakness, and urinary tract infection. Developed atrial fibrillation with rapid ventricular response 06/22/2024 with spontaneous conversion to normal sinus rhythm overnight. Again she reverted to atrial fibrillation this morning. Minimally symptomatic at this time. Echocardiogram demonstrates preserved LV systolic function with mild left atrial enlargement. Recommend titration of metoprolol to 50 mg twice daily (outpatient dose 25 mg twice daily). Digoxin also added during hospitalization to improve rate control. Monitor telemetry. She may convert to sinus rhythm when underlying UTI is treated. Consider addition of amiodarone as a rhythm control strategy, if she continues to experience intermittent bouts of atrial fibrillation uncontrolled with metoprolol and digoxin. Add IV heparin. Patient does not appear to be a long-term candidate for oral anticoagulation due to fall risk. I spent a total of 40 minutes on the date of service in preparation, delivery, and documentation of the care provided to this patient, excluding any time spent in the performance of separately billed services. Ravindra Burris DO, [facility] History of Present Illness Reason for Consultation: New onset atrial fibrillation Requesting Physician: Dr. Barnes Attending Physician: Dr. Burris History of Present Illness Patient is a 83 year old female, admitted to [facility] on 06/20/24 after a fall with associated weakness, mental status changes, fevers/rigors. Diagnosed with UTI and SHELBY. Started on antibiotic. On the morning of 06/22/24, patient developed afib RVR, she converted to NSR with metoprolol and IV digoxin. Last night, she reverted back into atrial fibrillation with mildly elevated ventricular rates around 22:08. This morning she remains in persistent afib. Oral digoxin added and metoprolol increased to 50 mg BID by hospitalist team. She has been on SQ heparin since arrival. She reports multiple falls over the last 6 months, mostly mechanical and under different circumstances. She did hit her head with the most recent fall leading to admission. Head CT without acute process. At time of consult, patient feeling ok. Denies symptoms of chest pain/dyspnea or palpitations. No dizziness. Unaware of palpitations/afib. She notes ongoing weakness but attributes this to her UTI. Known to [facility] Cardiology, Dr. Petit. History includes: 1. Nonischemic cardiomyopathy with improved LV systolic function. Last ejection fraction 50-55%. 2. Compensated class II congestive heart failure. 3. Mild coronary atherosclerosis without obstructive disease on cardiac cath eterization March 2017. 4. Obstructive sleep apnea on BiPAP. 5. Chronic ventricular ectopy. 6. History of asymptomatic nonsustained salvos of brief ventricular tachycardia on past event monitor Allergies Allergy/AdvReac Type Severity Reaction Status Date / Time prednisone Allergy Intermediate Joint pain Verified 05/09/24 13:22 Sulfa (Sulfonamide Allergy Intermediate Nausea Verified 05/09/24 13:22 Antibiotics) codeine Allergy Mild Itchy, red Verified 05/09/24 13:22 skin latex Allergy Mild Itchy, red Verified 05/09/24 13:22 skin Home Medications Medication Instructions Recorded Confirmed Type digestive enzymes 1 tab PO DAILY 01/27/19 06/20/24 History multivitamin-ferrous 1 tab PO DAILY 01/27/19 06/20/24 History fumarate-folic acid 18 mg-400 mcg tablet (Centrum Complete) spironolactone 25 mg tablet 12.5 mg PO DAILY 01/22/21 06/20/24 History telmisartan 20 mg tablet 20 mg PO DAILY 01/22/21 06/20/24 History glucosamine sulfate 500 mg tablet 500 mg PO DAILY 11/26/21 06/20/24 History (Glucosamine) ascorbic acid (vitamin C) 500 mg 500 mg PO DAILY 10/02/22 06/20/24 History tablet fluticasone propionate 50 2 spray intranasal DAILY PRN 10/02/22 06/20/24 History mcg/actuation nasal allergies spray,suspension furosemide 20 mg tablet 20 mg PO .twice weekly and PRN PRN 10/02/22 06/20/24 History Fluid Retention Flutter Valve #1 ea 10/13/22 05/09/24 Rx aspirin 81 mg tablet 81 mg PO DAILY 11/28/22 06/20/24 History calcium carbonate-vitamin D3 1 tab PO DAILY 11/28/22 06/20/24 History [Calcium 600 with Vitamin D3] cholecalciferol (vitamin D3) 10 400 unit PO DAILY 11/28/22 06/20/24 History mcg (400 unit) tablet coenzyme Q10 100 mg capsule 100 mg PO DAILY 11/28/22 06/20/24 History omega-3 fatty acids [Fish Oil 1 tab PO DAILY 11/28/22 06/20/24 History Concentrate] turmeric 400 mg capsule 400 mg PO DAILY 11/28/22 06/20/24 History celecoxib 200 mg capsule (Celebrex) 200 mg PO BID PRN pain 06/26/23 06/20/24 History metoprolol succinate 25 mg 25 mg PO UD 06/26/23 06/20/24 History tablet,extended release 24 hr d-mannose [AZO D-Mannose] 2 cap PO DAILY 10/14/23 06/20/24 History albuterol sulfate 0.63 mg/3 mL 0.63 mg (3 mL) inhalation BID PRN 10/15/23 06/20/24 Rx solution for nebulization shortness of breath or wheezing #540 mL albuterol sulfate 90 mcg/actuation 2 puff inhalation Q6H PRN 10/15/23 06/20/24 Rx aerosol inhaler Shortness Of Breath Or Wheezing #18 grams sodium chloride 7 % for 1 inh inhalation BID #240 mL 10/15/23 06/20/24 Rx nebulization tiotropium bromide 2.5 2 puff inhalation DAILY #4 grams 10/15/23 06/20/24 Rx mcg/actuation mist for inhalation (Spiriva Respimat) conjugated estrogens 0.625 mg/gram 0.3125 mg vaginal .2 times a week 05/09/24 06/20/24 History vaginal cream nebulizer accessories #1 ea 05/23/24 Rx nebulizers (Aeroneb Go Nebulizer) #1 ea 05/23/24 Rx TENS unit and electrodes combo pack #1 ea 06/17/24 Rx mometasone 0.1 % topical cream 1 applic topical BID y 06/20/24 06/20/24 History Patient History Medical History Acute UTI Seborrheic keratosis Rectocele Menopausal symptoms COPD with emphysema Abnormal chest CT Neurofibroma Migraine Surgical History S/P tonsillectomy and adenoidectomy S/P foot surgery S/P appendectomy History of dilation and curettage H/O sinus surgery History of cataract surgery Family History Grandmother (Maternal) Colorectal cancer Family/Other Ovarian cancer first cousin Aunt Myocardial infarction Uncle Stroke Other Breast cancer Denies family history of Prostate cancer Lung cancer Social History Smoking Status: Never smoker Tobacco Type: Cigarettes Age Started Using Tobacco: 16; Age Quit Using Tobacco: 45; packs per day: 2; Second Hand Exposure: No; Do You Dip or Chew Tobacco: No; Hx Alcohol Use: Yes Alcohol type: wine Alcohol Intake Frequency: Monthly or Less Hx Substance Use: No Preferred Language: Tristanian Communication Ability: Effective Visual Impairment: Limited Hearing Ability: Normal Manager Business Management Required: No Beliefs That Will Affect Care: None marital status: Current Living Situation: Other Current Living Situation Comment: Daughter current occupational status: employed 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 How many Children do You have: 3 Other Information That Helps Us Care for You: No Feels Safe at Home: Yes Safety Concerns: Feels Safe At This Time Childhood Exposure to Second-Hand Smoke: Yes Diet: regular caffeine: No during the past year weight has: remained stable Dental Care, Regularly: Yes Physical Activity Frequency: 3-4 Times per Week Seatbelt Use: always Sunscreen Use: Yes Assistive Devices: BiPap and Cane Review of Systems Review of Systems: All systems reviewed & are unremarkable except as noted in HPI & below Physical Exam Constitutional: WD/WN, vitals as above well developed; no acute distress Neck: normal visual inspection Respiratory: normal respiratory effort Auscultation: lungs clear to auscultation bilaterally Cardiovascular: Rate/Rhythm: + irregularly irregular Heart Sounds: normal S1 and normal S2; no murmur Vessels: no JVD Extremities: no edema Gastrointestinal (Abdomen): normal bowel sounds, soft, nontender, no hepatosplenomegaly Musculoskeletal: no cyanosis or clubbing, extremities motor strength 5/5 Skin: no rashes, warm and dry Results & Data Vital Signs (Past 12 Hours) Vital Signs Temp Pulse Pulse Resp BP BP Pulse Ox 06/23/24 08:00 109 H 06/23/24 07:27 36.8 C 96 H 17 126/72 99 06/23/24 07:25 95 H 20 95 06/23/24 03:52 37.2 C 100 H 18 116/56 L 92 06/22/24 23:15 36.7 C 95 H 16 98/59 L 92 06/22/24 22:03 06/22/24 21:55 105 H O2 Del Method 06/23/24 08:00 06/23/24 07:27 Nebulizer 06/23/24 07:25 Room Air 06/23/24 03:52 Room Air 06/22/24 23:15 Room Air 06/22/24 22:03 Room Air 06/22/24 21:55 Laboratory Results Comprehensive Metabolic Panel 06/23/24 Range/Units 06:01 Sodium 132 L (136-145) mmol/L Potassium 4.2 (3.5-5.1) mmol/L Chloride 102 (98-107) mmol/L Carbon Dioxide 22 (21-32) mmol/L BUN 16 (6-23) mg/dl Creatinine 0.77 (0.6-1.2) mg/dl Glucose 102 H (70-99(Fasting)) mg/dl Calcium 8.5 L (8.6-10.3) mg/dl Intake and Output 06/22/24 06/23/24 06/23/24 22:59 06:59 14:59 Intake Total 100 / 1050 500 / 1050 Balance 100 / 1050 500 / 1050 Intake: IV 100 / 650 100 / 650 Acetaminophen 1,000 mg In 100 100 / 300 100 / 300 ml @ 400 mls/hr IV Q8H FE Rx#: [id number] Oral 400 / 400 Other: # Unmeasured Voids 1 Weight 73.4 kg Weight Measurement Method Built in [facility] Diagnostic Findings Telemetry reviewed: persistent atrial fibrillation since 22:08 last night. Variable HR's ranging 80-120's. Mostly in the 90 to low 100's currently. Yesterday morning she had an episode of afib, which resolved in the afternoon. She then had recurrent afib starting last night EKG reviewed from 06/22/24 at 9:31 AM: Afib with RVR Low voltage QRS mild T wave abnormality in inferior leads Echo reviewed from 06/22/24: Rhythm is atrial fib with RVR LVEF 55-60% Mild LVH Borderline anterior/posterior MVP Mild MR Mild TR Trivial loculated posterior pericardial effusion No evidence of tamponade Mildly enlarged left atrium Outside data reviewed: Outpatient echo 01/25/24: Interpretation Summary The examination is adequate to evaluate the referral indication. The LV wall thickness is normal. There is borderline diffuse left ventricular hypokinesis. The qualitative LV ejection fraction is 50-54% (normal). Mild mitral regurgitation is present. Mild tricuspid regurgitation is present. There is no evidence of pulmonary hypertension. The left ventricular diastolic function is mildly abnormal (grade I). Compared to the previous study performed 01/13/2023, there has been no significant interval change. Outpatient O report reviewed dated october 2023: Results: Patient had a min HR of 50 bpm, max HR of 182 bpm, and avg HR of 70 bpm. Predominant underlying rhythm was Sinus Rhythm. 6 Ventricular Tachycardia runs occurred, the run with the fastest interval lasting 4 beats with a max rate of 182 bpm, the longest lasting 12 beats with an avg rate of 116 bpm. 38 Supraventricular Tachycardia runs occurred, the run with the fastest interval lasting 4 beats with a max rate of 162 bpm, the longest lasting 14.6 secs with an avg rate of 135 bpm. Isolated SVEs were rare (<1.0%), SVE Couplets were rare (<1.0%), and SVE Triplets were rare (<1.0%). Isolated VEs were occasional (1.1%, 6318), VE Couplets were rare (<1.0%, 445), and VE Triplets were rare (<1.0%, 3). Ventricular Bigeminy and Trigeminy were present. No patient marker or diary entries were recorded Refer to rhythm strips available for review under the MUSE link for additional detail Medications Administered Current Inpatient Medications Albuterol (Albuterol 0.083% Nebu Soln 3 Ml Vial) 2.5 mg INH BID PRN PRN Reason: shortness of breath or wheezing Stop: 07/20/24 20:10 Albuterol (Albuterol Hfa 8 Gm Inhaler) 2 puffs INH Q6H PRN PRN Reason: Shortness Of Breath Or Wheezing Stop: 07/20/24 20:06 Ascorbic Acid (Ascorbic Acid 500 Mg Tab) 500 mg PO DAILY [facility] Stop: 07/21/24 08:59 Last Admin: 06/22/24 08:29 Dose: 500 mg Aspirin (Aspirin 81 Mg Ectab) 81 mg PO DAILY [facility] Stop: 07/21/24 08:59 Last Admin: 06/22/24 08:30 Dose: 81 mg Bisacodyl (Bisacodyl 5 Mg Tabec) 5 mg PO HS PRN PRN Reason: Constipation Stop: 07/20/24 22:26 Calcium/Vitamin D (Calcium 600mg + Vit D 400 Iu Tab) 1 tab PO DAILY FE Stop: 07/21/24 08:59 Last Admin: 06/22/24 08:29 Dose: 1 tab Digoxin (Digoxin 0.125 Mg Tab) 0.125 mg PO DAILY@1600 [facility] Stop: 07/23/24 15:59 Fish Oil ([place]-3 (Purified Fish Oil) 1 Gm Cap) 1 cap PO DAILY FE Stop: 07/21/24 08:59 Last Admin: 06/22/24 08:28 Dose: 1 cap Fluticasone Propionate (Fluticasone Propionate Na Spr 16 Gm Btl) 2 sprays NA DAILY PRN PRN Reason: allergies Stop: 07/20/24 20:06 Heparin Sodium (Porcine) (Heparin Sod 5,000 Unit/0.5 Ml Vial) 5,000 units SQ Q12 FE Stop: 07/20/24 20:59 Last Admin: 06/22/24 20:26 Dose: 5,000 units Acetaminophen (Ofirmev) 1,000 mg in 100 mls @ 400 mls/hr IV Q8H [facility] Stop: 06/23/24 20:59 Last Infusion: 06/23/24 05:40 Dose: Infused Cefepime HCl (Maxipime 2000mg) 2,000 mg in 20 mls @ 5 mls/min IV Q12H [facility]; Protocol Stop: 06/27/24 17:29 Last Admin: 06/23/24 05:16 Dose: 5 mls/min Ipratropium Fisher (Ipratropium Fisher Neb Soln 0.02% 0.5mg/2.5ml Vial) 0.5 mg NEB Q4R PRN PRN Reason: Shortness Of Breath Or Wheezing Stop: 07/20/24 22:59 Levalbuterol HCl (Levalbuterol 1.25 Mg/3 Ml Neb) 1.25 mg NEB Q4R PRN PRN Reason: Shortness Of Breath Or Wheezing Stop: 07/20/24 22:59 Metoprolol Succinate (Metoprolol Succ 50mg Ext Rel Tab) 50 mg PO BID [facility] Stop: 07/23/24 08:59 Metoprolol Tartrate (Metoprolol Tartrate 1 Mg/Ml Vial) 5 mg IV Q4 PRN PRN Reason: sbp > 185, dbp >95, HR >120 Stop: 07/22/24 09:33 Last Admin: 06/22/24 09:49 Dose: 5 mg Multivitamins/Minerals (Cerovite Adv Formula Tab) 1 tab PO DAILY FE Stop: 07/21/24 08:59 Last Admin: 06/22/24 08:28 Dose: 1 tab Polyethylene Glycol (Polyethylene (Miralax) 17 Gm Pack) 17 gm PO DAILY FE Stop: 07/21/24 08:59 Last Admin: 06/22/24 08:31 Dose: Not Given Umeclidinium Fisher (Umeclidinium Fisher 62.5mcg/Blister 7 Puffs/Inhaler) 1 puffs INH DAILY FE Stop: 07/21/24 08:59 Last Admin: 06/22/24 08:29 Dose: 1 puffs Vitamin D (Cholecalciferol 10 Mcg (400 Units) Tab) 10 mcg PO DAILY FE Stop: 07/21/24 08:59 Last Admin: 06/22/24 08:31 Dose: 10 mcg (2) Urinary tract infection Hematuria presence: without hematuria Urinary tract infection type: site unspecified Qualified Code(s): N39.0 - Urinary tract infection, site not specified (3) Fall Encounter type: initial encounter Qualified Code(s): W19.XXXA - Unspecified fall, initial encounter
[2024-06-23 08:47] LABS: BUN Creatinine Ratio 20.8 (10-20); Calcium 8.5 mg/dl (8.6-10.3); Creatinine Clr Calc Pharmacy 55.5 ml/min; Potassium 4.2 mmol/L (3.5-5.1)
[2024-06-23] MEDS: METOPROLOL SUCC 50MG EXT REL TAB PO SCH (08:53)
[2024-06-23 09:02] LABS: Thyroid Stimulating Hormone 2.281 uIu/ml (0.300-4.500)
[2024-06-23] MEDS: MAGNESIUM SULFATE / D5W 1 GM/100 ML BAG IV ONE (10:55)
[2024-06-23] MEDS ORDERED: HEPARIN SOD (PORCINE) 1000 UNIT/ML IV ONE (11:32)
[2024-06-23 12:31] LABS: Basophils # (auto) 0.02 K/uL (0.00-0.20); Basophils % (auto) 0.3 %; Eosinophils # (auto) 0.01 K/uL (0.00-0.50); Eosinophils % (auto) 0.2 %; Hematocrit (blood only) 36.6 % (37.0-47.0); Hemoglobin 12.5 g/dl (12.0-16.0); Immature Granulocytes # (auto) 0.02 K/uL (0.01-0.20); Immature Granulocytes % (auto) 0.3 %; Lymphocytes # (auto) 1.16 K/uL (1.20-3.40); Lymphocytes % (auto) 18.7 %; Mean Corpuscular Hemoglobin 30.6 pg (25.0-34.0); Mean Corpuscular Hgb Conc 34.2 g/dL (32.0-36.0); Mean Corpuscular Volume 89.5 fL (80.0-100.0); Mean Platelet Volume 11.5 fL (9.4-12.4); Monocytes # (auto) 0.35 K/uL (0.11-0.59); Monocytes % (auto) 5.7 %; Neutrophils # (auto) 4.63 K/uL (1.40-6.50); Neutrophils % (auto) 74.8 %; Platelet Count 119 K/uL (130-400); RDW Coefficient of Variation 14.3 % (11.5-14.5); RDW Standard Deviation 47.3 fL (36.4-46.3); Red Blood Count 4.09 M/uL (4.20-5.40); White Blood Count 6.19 K/ul (4.8-10.8)
[2024-06-23 12:42] LABS: INR 0.9 (0.9-1.1); Partial Thromboplastin Ratio 1.2; Partial Thromboplastin Time 31 Seconds (21-31); Prothrombin Time 10.3 Seconds (9.0-12.0)
[2024-06-23] MEDS: Heparin IV Adult Wt-Based Standard w/ INITIAL Bolus Protocol IV STA (13:09)
[2024-06-23] MEDS: HEPARIN IV BOLUS 5,000 UNITS in SYRINGE 0 ML IV ONE (13:09)
[2024-06-23] MEDS: HEPARIN SODIUM/DEXTROSE 25,000 UNITS/500 ML BAG IV SCH (13:10)
[2024-06-23] MEDS: DIGOXIN 0.125 MG TAB PO SCH (16:40)
[2024-06-23] MEDS: MELATONIN 3 MG TAB PO ONE (21:21)
[2024-06-24 03:02] LABS: ANTI-Xa, UFH(UnfractionatedHep 0.44 IU/ml (0.3-0.7)
--- NOTE | 2024-06-24 10:20 | Cardiology Progress Note ---
Date of Service June 24, 2024 Assessment & Plan (1) Paroxysmal atrial fibrillation: (2) Urinary tract infection: (3) Fall: (4) Ventricular tachycardia, non-sustained: Plan 06/23/24 Patient admitted post fall with weakness and diagnosed with UTI. During admission she developed atrial fibrillation RVR, initially treated with metoprolol and IV digoxin, converting to NSR yesterday, but then reverting back to afib RVR last night. Metoprolol increased to 50 mg BID (home dose was 25 mg BID) Digoxin added. Rates improved this morning and patient not overtly symptomatic. Echo with preserved LVEF, mild LA enlargement. Patient with multiple falls over the last 6 months. Each fall was mechanical in nature, but concerned she is high risk for penitentiary anticoagulation due to fall risk and significant injury. [id number] score of at least 5 (Sex, age, HTN, mild CAD) It is likely patient will convert to NSR as she is treated for UTI. Continue metoprolol and digoxin. Would consider transitioning from SQ heparin to IV heparin. Monitor platelet count. Will discuss with Dr. Burris. Also Consider amiodarone if she fails to convert. 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 She also has a history of non sustained VT on outpatient telemetry. No VT noted during admission currently. Replace magnesium. History of non ischemic cardiomyopathy with recent echo with preserved EF. Mild CAD without obstructive disease. Continue other outpatient meds including ASA. Resume home Telmisartan as BP allows and with improved renal function. (per outpatient records, she takes 20 mg daily continue antibiotics per hospitalist. PT/OT and consider rehab for weakness. 06/24/24: Patient converted to NSR overnight. Continue increased dose of metoprolol succinate 50 mg BID Stop digoxin Continue IV heparin for now. Risks vs benefits of oral anticoagulation discussed with patient once again. She has had multiple mechanical falls over the last 6 months with gait instability. She has hit her head on 2 occasions. With shared decision making, we have decided that she is considered high risk for penitentiary anticoagulation. Continue IV heparin during admission and then will discontinue upon discharge. If she has recurrent afib during admission, would initiation amiodarone for antiarrhythmic therapy. Treat UTI per hospitalist. PT/OT recommended. Will sign off. Please contact application security engineer cardiology provider with additional questions or concerns. No further cardiac testing warranted at this time Case discussed with Dr. Burris I spent a total of 35 minutes on the date of service in preparation, delivery, and documentation of the care provided to this patient, excluding any time spent in the performance of separately billed services. Josie Bello PA-C Department of Cardiology, [facility] This chart was completed in part utilizing Speech Voice Recognition Software. Grammatical errors, random word insertions, pronoun errors, and incomplete sentences are an occasional consequence of this system due to software limitations, ambient noise, and hardware issues. Any formal questions or concerns about the content, text, or information contained within the body of this dictation should be directly addressed to the provider for clarification. Admission and Anticipated Discharge Date Admission Date: June 20, 2024 Supervising Physician Co-Signing Physician Notes I have personally performed a history and physical examination on the patient. I have reviewed the advance practitioner's documentation, and I agree with, and take responsibility for the plan of care. 83-year-old female converted to normal sinus rhythm overnight. Continue metoprolol 50 mg twice daily. Digoxin may be discontinued at this time. Will continue IV heparin as inpatient. Patient does not appear to be a long-term anticoagulation candidate due to significant fall risk. If patient experiences additional episodes of atrial fibrillation during hospitalization despite titration of beta-yanni, consider addition of amiodarone for rhythm control strategy. Cardiology will sign off. Please call with additional concerns/questions. I spent a total of 35 minutes on the date of service in preparation, delivery, and documentation of the care provided to this patient, excluding any time spent in the performance of separately billed services. Ravindra Burris DO, [facility] Subjective Patient resting in bed comfortably. reports she had a good night sleep and feels much better this morning. She converted from afib to NSR around 1:20 AM. She denies chest pain or SOB. No dizziness or lightheadedness. No orthopnea, PND or edema. Mild weakness reported. Ordered PT/OT today Review of Systems Review of Systems: All systems reviewed & are unremarkable except as noted in HPI & below Physical Exam Constitutional: WD/WN, vitals as above well developed; no acute distress Neck: normal visual inspection Respiratory: normal respiratory effort Auscultation: lungs clear to auscultation bilaterally Cardiovascular: Rate/Rhythm: regular rate and regular rhythm Heart Sounds: normal S1 and normal S2; no murmur Vessels: no JVD Extremities: no edema Gastrointestinal (Abdomen): normal bowel sounds, soft, nontender, no hepatosplenomegaly Musculoskeletal: no cyanosis or clubbing, extremities motor strength 5/5 Skin: no rashes, warm and dry Results & Data Vital Signs (Past 12 Hours) Vital Signs Temp Pulse Pulse Pulse Resp BP Pulse Ox 06/24/24 08:15 37.2 C 84 18 131/72 93 06/24/24 03:59 36.8 C 88 18 128/70 94 06/24/24 00:00 107 H 06/23/24 22:54 06/23/24 22:46 36.7 C 96 H 18 134/75 95 O2 Del Method 06/24/24 08:15 Room Air 06/24/24 03:59 Room Air 06/24/24 00:00 06/23/24 22:54 Room Air 06/23/24 22:46 Room Air Laboratory Results Coagulation 06/23/24 Range/Units 12:08 PT 10.3 (9.0-12.0) Seconds APTT 31 (21-31) Seconds CBC 06/23/24 Range/Units 12:08 WBC 6.19 (4.8-10.8) K/ul RBC 4.09 L (4.20-5.40) M/uL Hgb 12.5 (12.0-16.0) g/dl Hct 36.6 L (37.0-47.0) % Plt Count 119 L (130-400) K/uL Neut # (Auto) 4.63 (1.40-6.50) K/uL Lymph # (Auto) 1.16 L (1.20-3.40) K/uL Burt # (Auto) 0.35 (0.11-0.59) K/uL Eos # (Auto) 0.01 (0.00-0.50) K/uL Baso # (Auto) 0.02 (0.00-0.20) K/uL Intake and Output 06/23/24 06/24/24 06/24/24 22:59 06:59 14:59 Intake Total 252.184 / 894.851 123.5 / 894.851 Balance 252.184 / 894.851 123.5 / 894.851 Intake: IV 152.184 / 474.851 123.5 / 474.851 Heparin Sodium/Dextrose 25,000 152.184 / 275.684 123.5 / 275.684 units In 500 ml @ 950 UNITS/HR 19 mls/hr IV .Q24H [facility] Rx#: [id number] Oral 100 / 420 Other: # Unmeasured Voids 1 Weight 74.4 kg Weight Measurement Method Built in [facility] Diagnostic Findings Telemetry reviewed: Currently NSR in the 80's. Converted from afib around 1:20 AM. Medications Administered Current Inpatient Medications Albuterol (Albuterol 0.083% Nebu Soln 3 Ml Vial) 2.5 mg INH BID PRN PRN Reason: shortness of breath or wheezing Stop: 07/20/24 20:10 Albuterol (Albuterol Hfa 8 Gm Inhaler) 2 puffs INH Q6H PRN PRN Reason: Shortness Of Breath Or Wheezing Stop: 07/20/24 20:06 Ascorbic Acid (Ascorbic Acid 500 Mg Tab) 500 mg PO DAILY [facility] Stop: 07/21/24 08:59 Last Admin: 06/24/24 08:39 Dose: 500 mg Aspirin (Aspirin 81 Mg Ectab) 81 mg PO DAILY [facility] Stop: 07/21/24 08:59 Last Admin: 06/24/24 08:39 Dose: 81 mg Bisacodyl (Bisacodyl 5 Mg Tabec) 5 mg PO HS PRN PRN Reason: Constipation Stop: 07/20/24 22:26 Calcium/Vitamin D (Calcium 600mg + Vit D 400 Iu Tab) 1 tab PO DAILY FE Stop: 07/21/24 08:59 Last Admin: 06/24/24 08:39 Dose: 1 tab Digoxin (Digoxin 0.125 Mg Tab) 0.125 mg PO DAILY@1600 [facility] Stop: 07/23/24 15:59 Last Admin: 06/23/24 16:40 Dose: 0.125 mg Fish Oil ([place]-3 (Purified Fish Oil) 1 Gm Cap) 1 cap PO DAILY FE Stop: 07/21/24 08:59 Last Admin: 06/24/24 08:39 Dose: 1 cap Fluticasone Propionate (Fluticasone Propionate Na Spr 16 Gm Btl) 2 sprays NA DAILY PRN PRN Reason: allergies Stop: 07/20/24 20:06 Cefepime HCl (Maxipime 2000mg) 2,000 mg in 20 mls @ 5 mls/min IV Q12H FE; Protocol Stop: 06/27/24 17:29 Last Admin: 06/24/24 06:33 Dose: 5 mls/min Heparin Sodium/Dextrose (Heparin Sodium/Dextrose) 25,000 units in 500 mls @ 19 mls/hr IV .Q24H FE; Protocol Stop: 07/23/24 11:44 Last Titration: 06/24/24 03:18 Dose: 950 units/hr, 19 mls/hr Ipratropium Milo (Ipratropium Milo Neb Soln 0.02% 0.5mg/2.5ml Vial) 0.5 mg NEB Q4R PRN PRN Reason: Shortness Of Breath Or Wheezing Stop: 07/20/24 22:59 Levalbuterol HCl (Levalbuterol 1.25 Mg/3 Ml Neb) 1.25 mg NEB Q4R PRN PRN Reason: Shortness Of Breath Or Wheezing Stop: 07/20/24 22:59 Melatonin (Melatonin 3 Mg Tab) 3 mg PO HS PRN PRN Reason: Sleep Stop: 07/24/24 13:23 Metoprolol Succinate (Metoprolol Succ 50mg Ext Rel Tab) 50 mg PO BID [facility] Stop: 07/23/24 08:59 Last Admin: 06/24/24 08:39 Dose: 50 mg Metoprolol Tartrate (Metoprolol Tartrate 1 Mg/Ml Vial) 5 mg IV Q4 PRN PRN Reason: sbp > 185, dbp >95, HR >120 Stop: 07/22/24 09:33 Last Admin: 06/22/24 09:49 Dose: 5 mg Multivitamins/Minerals (Cerovite Adv Formula Tab) 1 tab PO DAILY [facility] Stop: 07/21/24 08:59 Last Admin: 06/24/24 08:39 Dose: 1 tab Polyethylene Glycol (Polyethylene (Miralax) 17 Gm Pack) 17 gm PO DAILY [facility] Stop: 07/21/24 08:59 Last Admin: 06/24/24 08:40 Dose: 17 gm Umeclidinium Milo (Umeclidinium Milo 62.5mcg/Blister 7 Puffs/Inhaler) 1 puffs INH DAILY FE Stop: 07/21/24 08:59 Last Admin: 06/24/24 08:40 Dose: 1 puffs Vitamin D (Cholecalciferol 10 Mcg (400 Units) Tab) 10 mcg PO DAILY FE Stop: 07/21/24 08:59 Last Admin: 06/24/24 08:39 Dose: 10 mcg (2) Urinary tract infection Hematuria presence: without hematuria Urinary tract infection type: site unspecified Qualified Code(s): N39.0 - Urinary tract infection, site not specified (3) Fall Encounter type: initial encounter Qualified Code(s): W19.XXXA - Unspecified fall, initial encounter
[2024-06-24 10:25] LABS: ANTI-Xa, UFH(UnfractionatedHep 0.36 IU/ml (0.3-0.7)
--- NOTE | 2024-06-24 11:04 | Hospitalist Progress Note ---
Date of Service June 24, 2024 Assessment & Plan (1) Urinary tract infection: (2) SHELBY (acute kidney injury): Plan 83-year-old female PMHx COPD with emphysema, neurofibroma, and migraines presenting to ED following fall from standing at home, all imaging w/o traumatic findings. 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 Upon admitting evaluation, patient was stable and conversing with provider. DO and PA then notified of the abrupt change in patient, becoming more feverish and rigorous w/ change in mental status, requiring supplemental O2. Had resolved w/ interventions. Received 1.5L NSS and Ceftriaxone in ED. Admission for treatment of UTI and SHELBY. SIRS Fevers, rigors. 2/2 to UTI UA is with greater than 100 K CFU for Enterobacter cloacae complex, anoscrdovia powell sensitive. change to cefepime per discussion with pharmacy CTA/P: No acute findings. Small bilateral pleural effusions are noted. afib rvr, on metoprolol, given digoxin 0.25 x 2-> Now back in NSR checked echo ( fairly normal x MR) cardiology consult, start iv heparin, had a dose of Digoxin Due to frequent falls, she is at a high risk for bleed Hasbled score 4.1 % having only age and medication Will maintain Heparin only here in the hospital, will not discharge on anticoagulation continue metoprolol 50mg bid SHELBY-resolved With history of incomplete bladder emptying - holding telmiartan and spironolactone, BP is lower with increased metoprolol COPD/emphysema, chronic stable No wheezing No oxygen requirements Continue BiPAP at night, nebs as needed - on metoprolol for history of non sustained v tach PT/OT pending VTE Prophylaxis: heparin iv therapeutic Hopefully d/c in the next 24 hrs Admission and Anticipated Discharge Date Admission Date: June 20, 2024 Subjective patient seen and examined, feels better over all Review of Systems Review of Systems: All systems reviewed are negative, apart from the ones contained in the history. Physical Exam Physical Exam: The patient is awake, alert and oriented 3, well developed and well nourished, normocephalic and atraumatic, lying in bed and in no acute distress. HEENT--PERRL, EOMI, mucous membranes and oropharynx mildly dry Neck--supple. No JVD. No bruits. Thyroid normal, trachea midline, no adenopathy. Heart--normal S1 and S2. No murmurs, rubs or gallops. Lungs--clear bilaterally, no respiratory distress, no accessory muscle use. Abdomen--normal bowel sounds and soft. Extremities--no cyanosis or clubbing. No edema. Dermatologic--normal skin turgor, normal color, no abnormal lymph nodes, no rash. Neurologic--cranial nerves II through XII grossly intact. Rheumatologic--normal range of motion. Psychiatric--normal affect. Results & Data Results & Data Vital Signs (Past 12 Hours) Vital Signs Temp Pulse Pulse Pulse Resp BP Pulse Ox 06/24/24 08:15 99.0 F 84 18 131/72 93 06/24/24 03:59 98.2 F 88 18 128/70 94 06/24/24 00:00 107 H O2 Del Method 06/24/24 08:15 Room Air 06/24/24 03:59 Room Air 06/24/24 00:00 PG Care Time/CCT Total # of Minutes Spent Total Time Spent with Patient: Total time spent is greater than 50% in coordination of care (as documented) at patient's floor/unit and/or counseling patient: Coding Level of Care Code 96801 SUB INP/OBS CARE 2/35MIN Diagnoses Urinary tract infection N39.0 Hematuria presence: without hematuria Urinary tract infection type: site unspecified SHELBY (acute kidney injury) N17.9 Time Spent (min) 35 (1) Urinary tract infection Hematuria presence: without hematuria Urinary tract infection type: site unspecified Qualified Code(s): N39.0 - Urinary tract infection, site not specified
[2024-06-24] MEDS: ACETAMINOPHEN 325 MG TAB PO PRN (20:15)
[2024-06-24] MEDS: MELATONIN 3 MG TAB PO PRN (20:16)
[2024-06-25 06:18] LABS: ANTI-Xa, UFH(UnfractionatedHep 0.29 IU/ml (0.3-0.7)
[2024-06-25 10:42] VITALS: PULSE 82; RESP 19; TEMP 97.9; O2SAT 95
--- NOTE | 2024-06-25 11:47 | Discharge Summary ---
Date of Service June 25, 2024 Admission HPI Per Admitting Provider 83-year-old female PMHx COPD with emphysema, neurofibroma, and migraines presenting to ED following fall at home. 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 Does not believe that she struck her head, but thinks she hit her right hip. States that she was on the ground for maybe a few minutes, but that her daughter was able to help her get back up. She had no symptoms prior to the fall to include dizziness, chest pain, or shortness of breath. Prior to this, the patient states that she has been sick for approximately 3 days, stating that the lymph nodes in her neck were swollen and she was having a sore throat. This has improved slightly. Current complaint is that she is feeling very cold and shaking. Denying additional symptoms to include chest pain, shortness of breath, palpitations, abdominal pain, N/V/D/C, dysuria, headache, dizziness, or weakness. UA on arrival revealing evidence of infection with leukocytosis. Imaging reveals no traumatic findings. Her daughter is present in the room at time of visit and helps provide history. Patient's daughter states that she is noted that the day of arrival the patient became slower to answer questions and appeared to be weaker. Patient did not take morning medications. Admission Exam (Per Admitting) Constitutional The patient is awake, alert and oriented 3, well developed and well nourished, normocephalic and atraumatic, lying in bed and in no acute distress. HEENT--PERRL, EOMI, mucous membranes and oropharynx mildly dry Neck--supple. No JVD. No bruits. Thyroid normal, trachea midline, no adenopathy. Heart--normal S1 and S2. No murmurs, rubs or gallops. Lungs--clear bilaterally, no respiratory distress, no accessory muscle use. Abdomen--normal bowel sounds and soft. Extremities--no cyanosis or clubbing. No edema. Dermatologic--normal skin turgor, normal color, no abnormal lymph nodes, no rash. Neurologic--cranial nerves II through XII grossly intact. Rheumatologic--normal range of motion. Psychiatric--normal affect. Discharge Data Consultations 06/20/24 19:25 ED Decision to Admit Stat 01/09/25 07:10 Consult Cardiology Routine Hospital Course (1) Urinary tract infection: (2) SHELBY (acute kidney injury): Plan 83-year-old female PMHx COPD with emphysema, neurofibroma, and migraines presenting to ED following fall from standing at home, all imaging w/o traumatic findings. 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 Upon admitting evaluation, patient was stable and conversing with provider. DO and PA then notified of the abrupt change in patient, becoming more feverish and rigorous w/ change in mental status, requiring supplemental O2. Had resolved w/ interventions. Received 1.5L NSS and Ceftriaxone in ED. Admission for treatment of UTI and SHELBY. SIRS Fevers, rigors. 2/2 to UTI UA is with greater than 100 K CFU for Enterobacter cloacae complex, anosc rdovia powell sensitive. d/c on PO ciprofloxacin for 5 more days afib rvr, on metoprolol, given digoxin 0.25 x 2-> Now back in NSR checked echo ( fairly normal x MR) Due to frequent falls, she is at a high risk for bleed Hasbled score 4.1 % having only age and medication Will maintain Heparin only here in the hospital, will not discharge on anticoagulation continue metoprolol 50mg bid SHELBY-resolved With history of incomplete bladder emptying - holding telmiartan and spironolactone, BP is lower with increased metoprolol COPD/emphysema, chronic stable No wheezing No oxygen requirements Continue BiPAP at night, nebs as needed - on metoprolol for history of non sustained v tach PT/OT pending VTE Prophylaxis: heparin iv therapeutic d/c home Coding Level of Care Code 65134 INP/OBS DISCH >30 MIN Diagnoses Urinary tract infection N39.0 Hematuria presence: without hematuria Urinary tract infection type: site unspecified SHELBY (acute kidney injury) N17.9 Time Spent (min) 35
[2024-06-25 12:46] VITALS: BP 148/73
[2024-06-25 13:28] LABS: ANTI-Xa, UFH(UnfractionatedHep 0.11 IU/ml (0.3-0.7)
== END 2024-06-25 13:47 | disposition home or self-care (01) | DRG 689 ==
LOC: ED 14:44 → EDINP 19:52 → SUATTDRO 20:01 → 2E 21:22